=== PATIENT | female | born 1965 | race Caucasian/White ===

== ENCOUNTER → 2016-07-08 | Outpatient (CLI) | payer BC ==
--- NOTE | 2016-07-08 13:19 | MR ---
EXAMINATION TYPE: MR brain wo/w con DATE OF EXAM: 07/08/2016 1:07 PM COMPARISON: Prior MRI brain January 25, 2013. HISTORY: MS with new extremity weakness. TECHNIQUE: Multiplanar, multisequence images of the brain and brainstem is performed without and with IV contras t, utilizing 10 mL intravenous MultiHance gadolinium contrast is administered intravenously. Demyeli nating disease protocol with additional Sagittal Flair sequence performed. FINDINGS: T2 Lesions Present : Yes Approximate Number of Lesions: Approximately 30 Locations Identified : Predominantly periventricular and deep white matter though some subcortical le sions are present. Size of Reference Lesion(s): 1. 0.6 cm x 0.6 cm x 0.6 cm on axial image 21 and sagittal image 13 left posterior frontal centrum s emiovale periventricular small lesion stable. 2 0.5 cm x 0.5 cm x 1.3 cm on axial image 25 and sagittal image 22 right parietal's subcortical les ion stable. Enhancing Lesion(s) Present: No T1 Hypointense Lesion(s) Present: Yes Change from Prior: Stable Diffusion weighted images demonstrate no evidence of a recent infarct or other diffusion abnormality. There is no worrisome extra-axial fluid collection. The ventricular system and cisternal spaces ar e normal in size and appearance. The brain volume is age appropriate. Midline structures demonstrate normal morphology. The craniocervical junction appears within normal limits. Post contrast images demonstrate no abnormal enhancement. The dural venous sinuses appear pa tent. The globes are distorted by artifact. Mild mucosal thickening at level of ethmoid sinuses sana ins present. There is mild mucosal thickening in inferior maxillary sinuses, left greater than right, redemonstrated. IMPRESSION: Moderate white matter changes likely on basis of known multiple sclerosis redemonstrated. Overall stable findings. No new or enhancing lesions are clearly seen. Mild chronic paranasal sinus disease is redemonstrated without significant change from prior study identified.
== END | disposition home or self-care (01) ==
LOC: RADMRIMAIN 12:22
PROVIDERS: ATTEND Psychiatry & Neurology Neurology
DX: R90.82 White matter disease, unspecified (principal); J34.89 Other specified disorders of nose and nasal sinuses
CPT/HCPCS: 70553; A9577

== ENCOUNTER 2016-07-09 20:30 | Emergency (ER) | payer BC ==
[2016-07-09] MEDS ORDERED: MAG HYDROX/AL HYDROX/SIMETH 30 ML, HYOSCYAMINE ELIXIR 10 ML, CIMETIDINE HCL 300 MG, LID... PO STA ×4 (21:10)
[2016-07-09] MEDS ORDERED: SODIUM CHLORIDE 0.9% 1,000 ML IV ONE (21:12)
[2016-07-09] MEDS: ONDANSETRON 4 MG/2 ML VIAL IVP STA (21:29)
[2016-07-09] MEDS ORDERED: KETOROLAC 30 MG/ML 1 ML VIAL IVP STA (21:54)
[2016-07-09 21:58] LABS: ALT 55 U/L (9-52); AST 32 U/L (14-36); Alkaline Phosphatase 127 U/L (38-126); Anion Gap 10 mmol/L; Blood Urea Nitrogen 22 mg/dL (7-17); Calcium 9.6 mg/dL (8.4-10.2); Carbon Dioxide 29 mmol/L (22-30); Chloride 104 mmol/L (98-107); Glucose 94 mg/dL (74-99); Non-African American GFR(MDRD) >60 (>60 ml/min/1.73 sqM); Potassium 3.8 mmol/L (3.5-5.1); Sodium 143 mmol/L (137-145); Total Bilirubin 0.7 mg/dL (0.2-1.3)
[2016-07-09 22:12] LABS: Basophils # (A) 0.1 k/uL (0-0.2); Basophils % (A) 1 %; CH 30.5; CHCM 33.9; Eosinophils # (A) 0.4 k/uL (0-0.7); Eosinophils % (A) 5 %; HCT 40.5 % (34.0-46.0); HDW 2.52; HGB 13.4 gm/dL (11.4-16.0); Luc # (Auto) 0.17; Luc % (Auto) 2; Lymphocytes # (A) 2.1 k/uL (1.0-4.8); Lymphocytes % (A) 31 %; MCH 29.8 pg (25.0-35.0); MCV 90.3 fL (80.0-100.0); Mean Platelet Volume 9.1; Monocytes # (A) 0.6 k/uL (0-1.0); Monocytes % (A) 9 %; Neutrophils # (A) 3.7 k/uL (1.3-7.7); Neutrophils % (A) 53 %; RBC 4.49 m/uL (3.80-5.40); RDW 12.7 % (11.5-15.5); WBC 6.9 k/uL (3.8-10.6); WBC (Perox) 7.04
[2016-07-09] MEDS ORDERED: RX INFO: IV CONTRAST WAS GIVEN 1 EACH MISC MISCELLANE PRN (23:38)
[2016-07-09] MEDS ORDERED: MORPHINE SULFATE 4 MG/ML SYRINGE IVP STA (23:39)
[2016-07-10] MEDS: ONDANSETRON 4 MG/2 ML VIAL IVP STA
--- NOTE | 2016-07-10 02:18 | CT ---
EXAMINATION TYPE: CT abdomen pelvis w con DATE OF EXAM: 07/10/2016 12:43 AM COMPARISON: NONE HISTORY: Epigastric Pain X3 days history of cholecystectomy CT DLP: 347.60 mGycm Automated exposure control for dose reduction was used. TECHNIQUE: Helical acquisition of images was performed from the lung bases through the pelvis. CONTRAST: Performed without Oral Contrast and with IV Contrast, patient injected with 100 mL of Omnipaque 300. FINDINGS: LUNG BASES: Mild atelectasis in both lung bases. LIVER/GB: There is mild fatty infiltration of liver. Cholecystectomy changes are noted. PANCREAS: Pancreas showed mild prominence of pancreatic duct and is probably related to chronic pulido es. No definite acute pancreatitis is noted. No significant fat stranding or pseudocyst formation is noted in the pancreas. SPLEEN: No significant abnormality is seen. ADRENALS: No significant abnormality is seen. KIDNEYS: No significant abnormality is seen. RETROPERITONEAL ADENOPATHY: None visualized REPRODUCTIVE ORGANS: No significant abnormality is seen URINARY BLADDER: No significant abnormality is seen. PELVIC ADENOPATHY: None visualized. OSSEOUS STRUCTURES: No significant abnormality is seen. BOWEL: Stomach is fluid and gas distended moderately. There is evidence of mucosal wall thickening i n the antrum of the stomach extending into the duodenum with suggestion of gastritis and duodenitis a s seen in the axial image 27 and coronal image 20. Small bowel loops showed no significant obstruction. Colonic bowel loops showed mild to moderate diverticulosis. There is possibility of mild colitis or diverticulitis changes without drainable abscess in the axial image 64 with mild fat stranding. Visualized appendix is gas-filled in the axial image 51 and coronal image 36 and appears unremarkable . OTHER: IMPRESSION: 1. SUSPECTED GASTRITIS AND DUODENITIS CHANGES. 2. POSSIBLE MILD DIVERTICULITIS INVOLVING DESCENDING COLON. NO SIGNIFICANT DRAINABLE ABSCESS IS NOTED . 3. APPENDIX APPEARS UNREMARKABLE. 4. MILD FATTY INFILTRATION OF LIVER. 5. POSSIBLE CHRONIC INFLAMMATION OF PANCREAS WITHOUT ACUTE PANCREATITIS. 6. CHOLECYSTECTOMY. A PHONE REPORT IS GIVEN TO DR. APONTE AT THE TIME OF THE DICTATION.
--- NOTE | 2016-07-10 02:31 | ED ---
Abdominal Pain HPI - General Chief Complaint: Abdominal Pain Stated Complaint: Abd Pain Time Seen by Provider: 07/09/16 20:49 Source: patient Mode of arrival: ambulatory Limitations: no limitations - History of Present Illness Initial Comments: 51-year-old female presenting for evaluation of abdominal pain that is progressive since onset last night that is continued to worsen stating that she is unable to find a position of comfort due to this sharp pain that radiates into her back that is worse with food. She states there are no alleviating factors to her pain. She states this pain is similar to a previous injury she had and was diagnosed with a hiatal hernia at that time although there was no surgical repair. - Related Data Home Medications Medication Instructions Recorded Confirmed Cholecalciferol [Vitamin D3] 2,000 unit PO DAILY 07/09/16 07/09/16 Glatiramer Acetate [Copaxone] 20 mg SQ MOWEFR 07/09/16 07/09/16 Modafinil [Provigil] 100 mg PO DAILY 07/09/16 07/09/16 Topiramate [Topamax] 100 mg PO DAILY PRN 07/09/16 07/09/16 Previous Rx's Medication Instructions Recorded Ciprofloxacin HCl [Cipro] 500 mg PO Q12HR #14 tablet 07/10/16 Pantoprazole Sodium [Protonix] 40 mg PO DAILY #30 tablet. 07/10/16 metroNIDAZOLE [Flagyl] 500 mg PO Q8HR #21 tab 07/10/16 Allergies Allergy/AdvReac Type Severity Reaction Status Date / Time No Known Allergies Allergy Verified 07/09/16 20:41 Review of Systems ROS Statement: Those systems with pertinent positive or pertinent negative responses have been documented in the HPI. General: Patient denies fever, chills, positive nausea without vomiting HEENT: No visual changes. No eye pain. No nasal symptoms. No dysphagia.No odynophagia. No ENT pain. Cardiac: No chest pain. No palpitations. Pulmonary; No dyspnea. No cough. GI: Positive epigastric abdominal pain. No diarrhea. No constipation. No bowel habit changes. No melena. No hematochezia. : No dysuria.No hematuria. No hesitancy. No urgency. No renal lithiasis history. Musculoskeletal: No musculoskeletal pain. Orthopedic: Denies fracture history. Integumentary: Denies rash. Denies pruritis. Neurologic: Denies any lateralizing weakness. Denies numbness. Denies tingling. No seizure activity. Denies TIA or CVA. Heme/Onc: Denies anemia. Denies cancer. Denies adenopathy. ROS Other: All systems not noted in ROS Statement are negative. Past Medical History Past Medical History: Neurologic Disorder Additional Past Medical History / Comment(s): Multiple sclerosis; Migraines History of Any Multi-Drug Resistant Organisms: None Reported Past Surgical History: Cholecystectomy, Orthopedic Surgery, Uterine Ablation Additional Past Surgical History / Comment(s): Neck surgery Past Psychological History: No Psychological Hx Reported Smoking Status: Current every day smoker Past Alcohol Use History: None Reported Past Drug Use History: Marijuana General Exam - General Exam Comments Initial Comments: General: The patient is awake and alert, in mild distress, and does not appear acutely ill. Eye: Pupils are equal, round and reactive to light, extra-ocular movements are intact; there is normal conjunctiva bilaterally. No signs of icterus. Ears, nose, mouth and throat: There are moist mucous membranes and no oral lesions. Neck: The neck is supple, there is no tenderness or JVD. Cardiovascular: There is a regular rate and rhythm. No murmur, rub or gallop is appreciated. Respiratory: Lungs are clear to auscultation, respirations are non-labored, breath sounds are equal. No wheezes, stridor, rales, or rhonchi. Gastrointestinal: Soft, non-distended, moderate epigastric abdominal tenderness without masses or organomegaly noted. There is no rebound or guarding present. No CVA tenderness. Bowel sounds are unremarkable. Back: There is no tenderness to palpation in the midline. There is no obvious deformity. No rashes noted. Musculoskeletal: Normal ROM, no tenderness, There is no pedal edema. There is no calf tenderness or swelling. Sensation intact. Pulses equal bilaterally 2+. Neurological: CN II-XII intact, There are no obvious motor or sensory deficits. Coordination appears grossly intact. Speech is normal. Skin: Skin is warm and dry and no rashes or lesions are noted. Psychiatric: Cooperative, appropriate mood & affect, normal judgment. Limitations: no limitations Course Vital Signs 07/09/16 07/09/16 07/10/16 20:39 21:44 00:04 Temperature 97.1 F L 98.0 F 97.6 F Pulse Rate 68 96 71 Respiratory 18 18 18 Rate Blood Pressure 156/69 156/96 115/53 O2 Sat by Pulse 99 98 98 Oximetry 07/10/16 01:22 Temperature 97.5 F L Pulse Rate 63 Respiratory 18 Rate Blood Pressure 124/84 O2 Sat by Pulse 98 Oximetry Medical Decision Making - Medical Decision Making 51-year-old female presenting for evaluation of epigastric abdominal tenderness that started last night and progressively worsened. She states the pain is similar to when she had epigastric trauma some years ago resulting in a hiatal hernia. The pain is epigastric with radiation into her back but she denies any history of alcohol consumption and is a 32 had a cholecystectomy. There is no history of significant NSAID use either. Physical examination reveals a mildly distressed patient holding her epigastric region. Epigastric abdominal tenderness to palpation but no guarding or rigidity and there are no peritoneal signs. We'll obtain labs and provide pain control. Labs revealed no acute significant abnormalities. Patient reevaluated and continued to have abdominal pain despite GI cocktail and Toradol. Through shared decision making it was decided that she would obtain a CT abdomen for further evaluation of intra-abdominal structures. CT abdomen and pelvis with IV contrast: Suspected gastritis and duodenitis, possible mild diverticulitis involving descending colon without significant drainable abscess, appendix appears unremarkable, mild fatty infiltration of liver, possible chronic inflammation of the pancreas without acute pancreatitis, cholecystectomy. The patient was informed of these findings and that she would be discharged with antibiotics and Protonix. She is further advised to follow-up with her primary care physician as well as her GI specialist. The patient was given instructions to return to this facility if her symptoms should worsen or persist including but not limited to: Intractable abdominal pain, intractable nausea vomiting, fevers and chills, chest pain, shortness of breath. The patient acknowledged an understanding of this information and agreed with this plan of care. - Lab Data Result diagrams: 07/09/16 22:00 07/09/16 21:45 Lab Results 07/09/16 07/09/16 07/09/16 Range/Units 21:45 21:45 22:00 WBC 6.9 (3.8-10.6) k/uL RBC 4.49 (3.80-5.40) m/uL Hgb 13.4 (11.4-16.0) gm/dL Hct 40.5 (34.0-46.0) % MCV 90.3 (80.0-100.0) fL MCH 29.8 (25.0-35.0) pg MCHC 33.0 (31.0-37.0) g/dL RDW 12.7 (11.5-15.5) % Plt Count 122 L (150-450) k/uL Neutrophils % 53 % Lymphocytes % 31 % Monocytes % 9 % Eosinophils % 5 % Basophils % 1 % Neutrophils # 3.7 (1.3-7.7) k/uL Lymphocytes # 2.1 (1.0-4.8) k/uL Monocytes # 0.6 (0-1.0) k/uL Eosinophils # 0.4 (0-0.7) k/uL Basophils # 0.1 (0-0.2) k/uL Sodium 143 (137-145) mmol/L Potassium 3.8 (3.5-5.1) mmol/L Chloride 104 (98-107) mmol/L Carbon Dioxide 29 (22-30) mmol/L Anion Gap 10 mmol/L BUN 22 H (7-17) mg/dL Creatinine 0.81 (0.52-1.04) mg/dL Est GFR (MDRD) Af Amer >60 (>60 ml/min/1.73 sqM) Est GFR (MDRD) Non-Af >60 (>60 ml/min/1.73 sqM) Glucose 94 (74-99) mg/dL Calcium 9.6 (8.4-10.2) mg/dL Total Bilirubin 0.7 (0.2-1.3) mg/dL AST 32 (14-36) U/L ALT 55 H (9-52) U/L Alkaline Phosphatase 127 H (38-126) U/L Troponin I <0.012 (0.000-0.034) ng/mL Total Protein 7.0 (6.3-8.2) g/dL Albumin 4.2 (3.5-5.0) g/dL Lipase 151 (23-300) U/L 07/10/16 02:40 EKG shows normal sinus rhythm without any significant abnormalities. Disposition Clinical Impression: Gastritis and duodenitis, Diverticulitis Disposition: HOME SELF-CARE Condition: Stable Instructions: Gastritis (ED), Duodenitis (ED) Additional Instructions: Please use medication as discussed. Please follow up with family doctor if symptoms have not improved over the next two days. Please return to the emergency room if your symptoms increase or worsen or for any other concerns. Prescriptions: Ciprofloxacin HCl [Cipro] 500 mg PO Q12HR #14 tablet Pantoprazole Sodium [Protonix] 40 mg PO DAILY #30 tablet. metroNIDAZOLE [Flagyl] 500 mg PO Q8HR #21 tab Referrals: Monroe Cordoba MD [Primary Care Provider] - 1-2 days Time of Disposition: 02:31
[2016-07-10 02:47] VITALS: BP 122/72; PULSE 72; RESP 20; TEMP 97.6
== END 2016-07-10 02:45 | disposition home or self-care (01) ==
LOC: EC 20:30
DX: K29.70 Gastritis, unspecified, without bleeding (principal); K29.80 Duodenitis without bleeding; K57.92 Diverticulitis of intestine, part unspecified, without perforation or abscess without bleeding; K44.9 Diaphragmatic hernia without obstruction or gangrene; Z79.899 Other long term (current) drug therapy; G35 Multiple sclerosis; G43.909 Migraine, unspecified, not intractable, without status migrainosus; F17.200 Nicotine dependence, unspecified, uncomplicated
CPT/HCPCS: 36415; 93005; 80053; 83690; 84484; 85025; 74177; 96374; 96375; 96361; 99284; J2270; J2405 ×2; J1885; Q9967

== ENCOUNTER → 2016-07-21 | Outpatient (CLI) | payer BC ==
[2016-07-21 11:44] LABS: ALT 39 U/L (9-52); AST 29 U/L (14-36); Alkaline Phosphatase 80 U/L (38-126); Bilirubin, Delta 0.2 mg/dL (0.0-0.2); Total Bilirubin 0.9 mg/dL (0.2-1.3); Total Protein 6.9 g/dL (6.3-8.2)
[2016-07-21 11:59] LABS: Basophils # (A) 0.1 k/uL (0-0.2); Basophils % (A) 1 %; CH 29.9; CHCM 32.5; Eosinophils # (A) 0.3 k/uL (0-0.7); Eosinophils % (A) 4 %; HDW 2.41; HGB 14.4 gm/dL (11.4-16.0); Luc # (Auto) 0.18; Luc % (Auto) 3; Lymphocytes # (A) 2.8 k/uL (1.0-4.8); Lymphocytes % (A) 43 %; MCHC 31.4 g/dL (31.0-37.0); MCV 92.6 fL (80.0-100.0); Mean Platelet Volume 8.6; Monocytes # (A) 0.4 k/uL (0-1.0); Monocytes % (A) 7 %; Neutrophils # (A) 2.8 k/uL (1.3-7.7); Neutrophils % (A) 43 %; RBC 4.97 m/uL (3.80-5.40); RDW 12.5 % (11.5-15.5); WBC 6.5 k/uL (3.8-10.6); WBC (Perox) 6.33
[2016-07-21 12:20] LABS: Hepatitis B Core IgM Index 0.17
[2016-07-21 12:32] LABS: Hepatitis C Virus IgG Index 0.11
[2016-07-21 12:35] LABS: Hepatitis C Virus IgG Ab Negative (Negative)
[2016-07-21 14:28] LABS: Iron 145 ug/dL (37-170)
[2016-07-21 14:38] LABS: % Iron Saturation 53.9 % (20-50); Total Iron Binding Capacity 269 ug/dL (265-497)
[2016-07-21 20:25] LABS: ANA w/Reflex to Titer NEGATIVE (NEGATIVE)
== END | disposition home or self-care (01) ==
LOC: LABWHC1 11:03
PROVIDERS: ATTEND Physician Assistant
DX: R94.5 Abnormal results of liver function studies (principal)
CPT/HCPCS: 36415; 80074; 80076; 82103; 82390; 82728; 83516; 83540; 83550; 84165; 85025; 86038

== ENCOUNTER → 2016-07-28 | Outpatient (CLI) | payer BC ==
--- NOTE | 2016-07-29 11:03 | MR ---
MRCP HISTORY: Abnormal CAT scan Correlation to CT scan abdomen pelvis 10 July 2016 Multiplanar multisequence imaging through the biliary system, three-dimensional postprocessing was pe rformed. Patient is post cholecystectomy. Loss of signal within the liver on out of phase imaging is suggestiv e of fatty infiltration of the liver. Pancreas shows an unremarkable appearance. Stomach shows appare nt improvement in wall thickening. Pancreatic duct is mildly prominent. No evident adenopathy. There is no luminal filling defect within the biliary system to suggest obstruction. Mild prominence of the central biliary system may be due to postcholecystectomy change. Apparent long cystic duct rem nant is noted. IMPRESSION: Post cholecystectomy. No luminal abnormality evident within the biliary system. Additiona l findings above.
== END | disposition home or self-care (01) ==
LOC: RADMRIMAIN 20:48
PROVIDERS: ATTEND Physician Assistant
DX: R93.8 Abnormal findings on diagnostic imaging of other specified body structures (principal); Z90.49 Acquired absence of other specified parts of digestive tract
CPT/HCPCS: 74181

== ENCOUNTER 2016-08-03 09:43 | Day surgery (SDC) | payer BC ==
[2016-08-01 11:36] VITALS: BMI 22.4
[~2016-08-03 09:43] MED LIST: LACTATED RINGERS 1,000 ML IV SCH
[2016-08-03 10:28] VITALS: RESP 16; TEMP 97.4
[2016-08-03] MEDS ORDERED: LIDOCAINE 1% 20 ML VIAL (10MG/ML) FOR IV START INTRADERMA ONE (10:35)
[2016-08-03] MEDS ORDERED: PROPOFOL 10 MG/ML 20 ML VIAL IV ONE (10:51)
[2016-08-03] MEDS ORDERED: LIDOCAINE 1% INJ 10MG/ML (20 ML MDV) ONE (10:51)
--- NOTE | 2016-08-03 11:06 | P.PCN ---
Date of Procedure: 08/03/16 Procedure(s) Performed: BRIEF HISTORY: Patient is a 51-year-old, pleasant, female, scheduled for an upper endoscopy as a part of evaluation of severe epigastric pain for the last 2 weeks' duration. She went to the ER and had CT of the abdomen done that showed some prominence of the pancreatic duct and hence she had an MRCP done which was normal. The persistent epigastric pain she is scheduled for an upper endoscopy to evaluate further PROCEDURE PERFORMED: Esophagogastroduodenoscopy with biopsy. PREOPERATIVE DIAGNOSIS: Epigastric pain of 2 weeks duration. IV sedation per anesthesia. PROCEDURE: After informed consent was obtained, the patient was brought into the endoscopy unit. IV conscious sedation was administered by Anesthesia under continuous monitoring. Initially the Olympus GIF-140 video endoscope was inserted into the mouth. Esophagus intubated without any difficulty. It was gradually advanced into the stomach and duodenum and carefully examined. The bulb and the second part of the duodenum appeared normal. Biopsies were done from the duodenum to rule out celiac disease. The scope at this time was withdrawn to the stomach, adequately insufflated with air, and upon careful examination, mucosa of the antrum, had mild gastritis and scattered erosions and biopsies were done from this area. The body, cardia and the fundus appeared normal. The scope was then withdrawn into the esophagus. The GE junction was located at 39 cm from the incisors.There were no erosions or ulcerations seen, rest of the esophagus appeared normal and the patient tolerated the procedure well. IMPRESSION: 1. Mild antral erosive gastritis. 2. No evidence of esophagitis or peptic ulcer disease. RECOMMENDATIONS: The findings of this examination were discussed with the patient as well as her family. She was advised to follow with the biopsy results. In the meantime she will continue with Prilosec 20 mg daily and follow antireflux measures..
--- NOTE | 2016-08-03 11:22 | P.PCN ---
Date of Procedure: 08/03/16 Procedure(s) Performed: BRIEF HISTORY: Patient is a 51-year-old pleasant white female, scheduled for an elective colonoscopy as a part of evaluation of abdominal pain for which she went to the emergency room 2 weeks ago. He is mostly in the epigastric area as well as left lower quadrant area. PROCEDURE PERFORMED: Colonoscopy with snare polypectomy PREOPERATIVE DIAGNOSIS: Abdominal pain. IV sedation per Anesthesia. PROCEDURE: After informed consent was obtained, the patient, was brought into the endoscopy unit. IV conscious sedation was administered by Anesthesia under continuous monitoring. Initially the Olympus CF-160 flexible video colonoscope was then inserted in the rectum, gradually advanced into the cecum without any difficulty. Careful examination was performed as the scope was gradually being withdrawn. Ileocecal valve and the appendiceal orifice were visualized and appeared normal. Prep was excellent. Mucosa of the cecum, ascending colon, appeared normal. In the transverse colon there was a 1 cm flat polyp removed by snare polypectomy. The rest of the transverse colon, descending colon, sigmoid colon, and rectum appeared normal. Scattered sigmoid diverticulosis seen. Retroflexion was performed in the rectum and no lesions were seen. The patient tolerated the procedure well. IMPRESSION: 1 cm flat transverse colon polyps status post polypectomy. Scattered sigmoid diverticulosis. RECOMMENDATIONS: Findings of this examination were discussed with the patient as well as a family. She was advised to follow with the biopsy results. If the biopsy of the colon polyp shows a tubular adenoma she can have a repeat colonoscopy in 5 years.
[2016-08-03 11:45] VITALS: BP 123/71; PULSE 60
== END 2016-08-03 12:07 | disposition home or self-care (01) ==
LOC: ORWHC2ENDO 09:43
PROVIDERS: ATTEND Internal Medicine Gastroenterology
DX: K29.60 Other gastritis without bleeding (principal); K29.50 Unspecified chronic gastritis without bleeding; K57.30 Diverticulosis of large intestine without perforation or abscess without bleeding; D12.3 Benign neoplasm of transverse colon; F17.200 Nicotine dependence, unspecified, uncomplicated; G35 Multiple sclerosis; K21.0 Gastro-esophageal reflux disease with esophagitis; Z79.899 Other long term (current) drug therapy
CPT/HCPCS: 81025; 88305; 88342; 45385; 43239; J2001; J2704

== ENCOUNTER → 2016-12-07 | Outpatient (CLI) | payer BC | END | disposition home or self-care (01) | LOC: LABWHC1 13:47 | PROVIDERS: ATTEND Psychiatry & Neurology Neurology | DX: G35 Multiple sclerosis (principal) | CPT/HCPCS: 36415; 82306 ==

== ENCOUNTER → 2017-09-14 | Outpatient (CLI) | payer BC ==
[2017-09-14 12:21] LABS: Basophils # (A) 0.1 k/uL (0-0.2); Basophils % (A) 1 %; Eosinophils # (A) 0.2 k/uL (0-0.7); Eosinophils % (A) 3 %; HCT 43.5 % (34.0-46.0); HGB 14.2 gm/dL (11.4-16.0); Lymphocytes # (A) 2.9 k/uL (1.0-4.8); Lymphocytes % (A) 38 %; MCH 29.7 pg (25.0-35.0); MCHC 32.6 g/dL (31.0-37.0); MCV 90.9 fL (80.0-100.0); Mean Platelet Volume 9.9; Monocytes # (A) 0.4 k/uL (0-1.0); Monocytes % (A) 5 %; Neutrophils % (A) 52 %; Platelet Count 157 k/uL (150-450); RBC 4.79 m/uL (3.80-5.40); RDW 12.9 % (11.5-15.5); WBC 7.7 k/uL (3.8-10.6)
[2017-09-14 12:38] LABS: ALT 27 U/L (9-52); AST 21 U/L (14-36)
== END | disposition home or self-care (01) ==
LOC: LABWHC1 11:50
PROVIDERS: ATTEND Psychiatry & Neurology Neurology
DX: G35 Multiple sclerosis (principal)
CPT/HCPCS: 36415; 84450; 84460; 85025; 86480

== ENCOUNTER → 2017-10-17 | Outpatient (CLI) | payer BC ==
--- NOTE | 2017-10-19 11:15 | MM ---
Reason for exam: screening (asymptomatic). Last mammogram was performed 7 years and 7 months ago. History: Family history of breast cancer in 2 maternal cousins. Took hormonal contraceptives for 3 months. Physical Findings: A clinical breast exam by your physician is recommended on an annual basis and results should be correlated with mammographic findings. MG Screening Mammo w CAD Bilateral CC and MLO view(s) were taken. Prior study comparison: March 22, 2010, bilateral digital screening mammogram. The breast tissue is heterogeneously dense. This may lower the sensitivity of mammography. No significant changes when compared with prior studies. ASSESSMENT: Negative, BI-RAD 1 RECOMMENDATION: Routine screening mammogram of both breasts in 1 year.
== END | disposition home or self-care (01) ==
LOC: RADMAMWWP 12:09
PROVIDERS: ATTEND Family Medicine
DX: Z12.31 Encounter for screening mammogram for malignant neoplasm of breast (principal)
CPT/HCPCS: 77067

== ENCOUNTER → 2017-11-03 | Outpatient (CLI) | payer BC ==
[~2017-11-03] MED LIST changes: -LACTATED RINGERS 1,000 ML IV SCH; +REGADENOSON 0.4 MG/5 ML SYRINGE IV ONE
--- NOTE | 2017-11-03 10:25 | P.STRESS ---
- Stress Test Note Stress Test Results/Findings: Exam Performed: NM stress lexiscan cardiolite Exam Date: 11/03/17 Reason for Exam: Chest Pain Height: 5 ft 2 in Weight: 52.617 kg Protocol: Raya Scan Stage: na Duration of Exercise: na Resting Heart Rate: 58 Resting Blood Pressure: 144/80 Maximum Achieved Heart Rate: 84 Maximum Achieved Blood Pressure: 153/80 85% PMHR: na 100% PMHR: na METS: na Technologist Comment: Stress Test Results/Findings: Baseline heart rate 58 beats a minute, Baseline blood pressure 144/80 mmHg Baseline ECG shows early repolarization abnormality inferolaterally During Lexiscan infusion no ECG changes noted heart rate and blood pressure remained stable Nuclear portion report separate
--- NOTE | 2017-11-03 11:47 | NM ---
EXAMINATION TYPE: NM stress lexiscan cardiolite DATE OF EXAM: 11/03/2017 COMPARISON: NONE HISTORY: History of tobacco use and palpitations presents with chest pain. TECHNIQUE: After the intravenous administration of 10.12 mCi Tc 99m Sestamibi - Cardiolite resting S PECT images acquired 45 minutes post injection. The patient received 0.4mg Lexiscan, 26.4 mCi Tc 99m Sestamibi - Stress images obtained [address] injection FINDINGS: Review of stress and rest SPECT images demonstrates no distinct perfusion abnormality. Gated analysi s shows normal wall motion with an estimated left ventricular ejection fraction of 73 %. IMPRESSION: No scintigraphic evidence for reversible ischemia.
== END ==
LOC: RADNMMAIN 08:15
PROVIDERS: ATTEND Family Medicine
DX: R07.89 Other chest pain (principal)
CPT/HCPCS: 93017; 78452; A9500; J2785

== ENCOUNTER → 2018-06-02 | Outpatient (CLI) | payer BC ==
--- NOTE | 2018-06-02 20:57 | MR ---
EXAMINATION TYPE: MR lumbar spine wo con DATE OF EXAM: 06/02/2018 COMPARISON: None HISTORY: Intervertebral disc disorders CONTRAST: 0 mL intravenous Gadavist. TECHNIQUE: Multiplanar, multisequence images of the lumbar spine were acquired. FINDINGS: L5-S1: No significant disc bulge or disc herniation. No spinal canal stenosis. No foraminal stenosi s. . L4-L5: No significant disc bulge or disc herniation. No spinal canal stenosis. No foraminal stenosi s. . L3-L4: There is right lateral disc bulging. This is posteriorly displacing the nerve roots as it ente rs the foramen. Moderate foraminal narrowing is present. Some nerve root contact in the right foramen is evident. No spinal canal stenosis. Some far right lateral disc bulging may be present as well a t this level. 2 lesser degree left far lateral disc bulge may be present. Series 401, images 9-10. L2-L3: No significant disc bulge or disc herniation. No spinal canal stenosis. No foraminal stenosi s. Neural foramen are patent.. L1-L2: No significant disc bulge or disc herniation. No spinal canal stenosis. No foraminal stenosi s. Neural foramen are patent.. T12-L1: No significant disc bulge or disc herniation. No spinal canal stenosis. No foraminal stenos is. Neural foramen are patent.. IMPRESSION: 1. Disc bulging into the lateral right far lateral direction at the L3-4 level. This is displacing th e nerve roots within the thecal sac away from the neural foramen. Correlate with right L3 radicular s ymptoms. 2. Subligamentous disc extension may be present in the right L3-4 foramen with nerve root contact in the foramen.
== END | disposition home or self-care (01) ==
LOC: RADMRIMAIN 09:54
PROVIDERS: ATTEND Family Medicine
DX: M51.16 Intervertebral disc disorders with radiculopathy, lumbar region (principal)
CPT/HCPCS: 72148

== ENCOUNTER → 2018-07-26 | Outpatient (CLI) | payer BC ==
[2018-07-25 12:19] VITALS: BMI 21.9
[2018-07-26 10:20] VITALS: BP 127/78; PULSE 59; RESP 16
--- NOTE | 2018-07-26 11:29 | P.PAINCN ---
History of Present Illness - Reason for Consult Consult date: 07/26/18 - Chief Complaint Back pain - History of Present Illness Amie is a 53-year-old female who presents today as a new patient consult. She has a history of low back pain which been going on since about April. She has a history of multiple sclerosis which was diagnosed in 1999. She has been on treatment for her MS and has had some symptoms secondary to her MS which include bilateral lower extremity weakness as well as pain in her lower extremities. She also has problems related to the treatment which included soft tissue changes where she was taking her injections. As for her pain she has low back pain going across both sides which she feels goes into her buttocks on both sides. She feels that the pain is worse since standing for long periods or walking for longer periods. She feels a dull aching pain into both sides of her buttocks. She denies any radicular symptoms going down her legs. She has not had any type of injections done for her back pain. She does have an MRI. She has been in physical therapy and continues to do daily activities related to her physical therapy. Past Medical History Past Medical History: GERD/Reflux Additional Past Medical History / Comment(s): Multiple sclerosis; "bad headaches ", bulging disk in lower back, History of Any Multi-Drug Resistant Organisms: None Reported Past Surgical History: Section, Cholecystectomy, Orthopedic Surgery, Uterine Ablation Additional Past Surgical History / Comment(s): cervical fusion, Past Anesthesia/Blood Transfusion Reactions: Previous Problems w/ Anesthesia Additional Past Anesthesia/Blood Transfusion Reaction / Comm: "I get real shaky after anesthesia" Past Psychological History: No Psychological Hx Reported Smoking Status: Current every day smoker Past Alcohol Use History: Rare Additional Past Alcohol Use History / Comment(s): smoking < 1/2 PPD, has smoked since age 20 Past Drug Use History: None Reported - Past Family History Father Family Medical History: Cancer Sister(s) Additional Family Medical History / Comment(s): "blood clot in her chest" Medications and Allergies Home Medications Medication Instructions Recorded Confirmed Type Cholecalciferol [Vitamin D3] 10,000 unit PO BID 07/09/16 07/26/18 History Topiramate [Topamax] 100 mg PO HS PRN 07/09/16 07/26/18 History Propranolol [Inderal] 20 mg PO QAM 08/01/16 07/26/18 History Ibuprofen 400 mg PO DIRECTED PRN 07/25/18 07/26/18 History Pantoprazole Sodium 40 mg PO DAILY 07/25/18 07/26/18 History Teriflunomide [Aubagio] 7 mg PO DAILY 07/25/18 07/26/18 History Allergies Allergy/AdvReac Type Severity Reaction Status Date / Time No Known Allergies Allergy Verified 07/26/18 10:04 Physical Exam Vitals: Vital Signs Pulse Resp BP 07/26/18 10:08 59 L 16 127/78 General: Awake and alert oriented 3 no distress Respiratory exam: No audible wheezing no accessory muscle usage Cardiovascular exam: regular rate, palpable bilateral pulses, no lower extremity edema Abdominal exam: No distention nontender to palpation Cervical spine: Normal alignment, Spurling's negative, facet loading negative Lumbar spine: Loss of lumbar lordosis, normal alignment, tender to palpation over bilateral paraspinal muscles, facet loading is positive bilaterally. Straight leg raise is negative. 4-5 strength in bilateral lower extremities. Hamstring 4 out of 5. Quadriceps 4-5. Anterior tibialis is 4-5. Sacroiliac joints: Nontender to palpation, MONROE is negative, Gaenselon negative Neuro exam: Decreased sensation in the lower extremities. Normal sensation in upper extremities., deep tendon reflexes are 2+ bilateral upper extremities. Deep tendon reflexes are brisk in lower extremities. 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 I believe that most of her pain may be coming from her facet joints. She does have a large disc bulge but given the lack of radicular symptoms I'm inclined to believe that most of her pain is coming from the facet joints. I discussed with the patient trialing medial branch blocks before moving onto treating any other symptoms or if she has no improvement from the medial branch blocks her pain may be coming from her severe disc changes at L3 4 level. PQRS Measure Charge Sheet PQRS Narrative: Smoking Status Current every day smoker Do You Want the Pneumonia No Vaccine AT THIS TIME? Blood Pressure 127/78 Pain Intensity [Bilateral 8 Lower Back] Scale Used Numeric (1 - 10) Hx Alcohol Use (MH) Yes: social Home Medications: Ambulatory Orders Cholecalciferol [Vitamin D3] 10,000 unit PO BID 07/09/16 Topiramate [Topamax] 100 mg PO HS PRN 07/09/16 Propranolol [Inderal] 20 mg PO QAM 08/01/16 Ibuprofen 400 mg PO DIRECTED PRN 07/25/18 Pantoprazole Sodium 40 mg PO DAILY 07/25/18 Teriflunomide [Aubagio] 7 mg PO DAILY 07/25/18
== END | disposition home or self-care (01) ==
LOC: PNWHC3 09:54
PROVIDERS: ATTEND Hospitalist
DX: M47.816 Spondylosis without myelopathy or radiculopathy, lumbar region (principal); G35 Multiple sclerosis; G62.9 Polyneuropathy, unspecified; F17.200 Nicotine dependence, unspecified, uncomplicated; K21.9 Gastro-esophageal reflux disease without esophagitis; Z90.49 Acquired absence of other specified parts of digestive tract; Z98.1 Arthrodesis status; Z79.899 Other long term (current) drug therapy; Z98.890 Other specified postprocedural states
CPT/HCPCS: 99211

== ENCOUNTER 2018-08-01 09:23 | Day surgery (SDC) | payer BC ==
[2018-07-31 10:02] VITALS: BMI 22.4
[~2018-08-01 09:23] MED LIST changes: -REGADENOSON 0.4 MG/5 ML SYRINGE IV ONE; +SODIUM CHLORIDE 0.9% 500 ML 500 ML IV SCH
[2018-08-01 10:19] VITALS: RESP 18; TEMP 98.2
--- NOTE | 2018-08-01 11:31 | P.PCN ---
Date of Procedure: 08/01/18 Procedure(s) Performed: PREOPERATIVE DIAGNOSIS : 1- Lumbar spondylosis with Facet Arthropathy without myelopathy . 2- Lumber degenerative disc disease POSTOPERATIVE DIAGNOSIS: 1- Lumbar spondylosis with Facet Arthropathy without myelopathy . 2- Lumber degenerative disc disease PROCEDURE: Diagnostic bilateral L3 -4 , L4 -5 , and L5-S1 medial branch block under fluoroscopy ANESTHESIA: moderate sedation with intravenous Versed 2 mg and Fentanyl 100 mcg. EBL: Minimal COMPLICATION: None. IV FLUIDS: 100 mL of normal saline. PROCEDURE INDICATION: Chronic low back pain secondary to Facet arthropathy unresponsive to conservative treatment. PROCEDURE DESCRIPTION: the patient was seen and identified in the preop holding area , risks and benefits and possible complications of the procedure and alternative were discussed with the patient, and the patient agreed to proceed with the procedure and signed the consent IV was started and vital signs monitored during the procedure and fluoroscopy was used to maximize the benefit and accuracy of the needle placement, and sedation was given to decrease patient anxiety, patient was taken to the procedure room and placed in prone position vital signs monitored in the back prepped with chlorhexidine X3 then under strict sterile technique using a right oblique fluoroscopy ,the junction of the transverse process and the superior articulating process of the right L3- 4 , L4- 5, and L5-S1 vertebra which corresponding to the fluoroscopy image of the eye of the Fito dog on the block side for the medial branches and subsequently , after local infiltration of skin and subcu tissuies with Ropivacaine 0.5 % , one mL at each level , then 25-gauge Quincke-type needles , 3 needle was used , each one of them placed at the junction of the base of the transverse process and the superior articular process at the appropriate level, and the needle was advanced until the periosteum contacted, needle placement confirmed with AP oblique and lateral view and after appropriate needle placement confirmed, and after negative aspiration for heme and CSF and there was no paresthesia 1-1/2 mL of Ropivacaine 0.5% mixed with 20 mg Depo-Medrol , then half mL injected at each level after negative aspiration the needle subsequently removed and the same procedure repeated for the left side at left side at L3-4, L4- 5 and L5-S1 levels. At the end of the procedure and the needles removed and a bandage applied after the skin was cleaned the cleaning solution patient taken to recovery room in stable condition and monitors in the recovery room for 20-30 minutes and discharged home in stable condition after discharge criteria met and patient will follow up with the pain clinic in 2-4 weeks
[2018-08-01] MEDS ORDERED: LACTATED RINGERS 1,000 ML IV ONE (11:32)
[2018-08-01] MEDS ORDERED: IV FLUID CONTINUATION 1,000 ML IV ONE (11:34)
--- NOTE | 2018-08-01 11:43 | FL ---
EXAMINATION TYPE: FL guided pain mgmt statistic DATE OF EXAM: 08/01/2018 HISTORY: Flouroscopy time 12 seconds of fluoroscopy provided. IMPRESSION: 1. Fluoroscopy time.
[2018-08-01 11:53] VITALS: BP 113/56; PULSE 50
== END 2018-08-01 12:30 | disposition home or self-care (01) ==
LOC: ORPAIN 09:23
PROVIDERS: ATTEND Specialist
DX: M47.816 Spondylosis without myelopathy or radiculopathy, lumbar region (principal); M51.36 Other intervertebral disc degeneration, lumbar region; G89.29 Other chronic pain
CPT/HCPCS: 81025; 64493; 64494; 64495; J2250; J1030; J3010; 99152

== ENCOUNTER → 2018-09-19 | Outpatient (CLI) | payer BC ==
[2018-09-19 13:42] VITALS: BP 157/77; PULSE 75; RESP 16
--- NOTE | 2018-09-19 14:16 | P.PN ---
Subjective Progress Note Date: 09/19/18 Amie is a very pleasant 53-year-old female presents today as a follow-up. She was seen as a new patient couple months ago for back pain. She has a long history of multiple sclerosis diagnosed in 2016. We'll set her up to have medial branch blocks done. The first injection offered her significant amount of pain. She was very excited. The second injection she reports did not help very much and she is very confused about what she should do. She reports that her back pain causes her significant pain is a 7 out of 10 on today's visit. The pain is not changing continues to be across her low back without much radiation into the lower extremities. She reports that she would like to move forward and try to figure out what else we can do to try to improve her back pain. She's not really using any pain medications for this. Objective - Vital Signs Vital signs: Vital Signs Temp Pulse 75 09/19/18 13:36 Resp 16 09/19/18 13:36 BP 157/77 09/19/18 13:36 Pulse Ox Intake & Output 09/18/18 09/19/18 09/19/18 18:59 06:59 18:59 Weight 51.256 kg - Exam General: Awake and alert oriented 3 no distress Respiratory exam: No audible wheezing no accessory muscle usage Cardiovascular exam: regular rate, palpable bilateral pulses, no lower extremity edema Abdominal exam: No distention nontender to palpation Cervical spine: Normal alignment, Spurling's negative, facet loading negative Lumbar spine: Loss of lumbar lordosis, normal alignment, tender to palpation over bilateral paraspinal muscles, facet loading is positive bilaterally. Strai ght leg raise is negative. Sacroiliac joints: Nontender to palpation, MONROE is negative, Gaenselon negative Neuro exam: Normal sensation in bilateral upper extremities, deep tendon reflexes are 2+ bilateral upper extremities. Normal sensation in bilateral lower extremities. Deep tendon reflexes are brisk Psych exam: Cooperative, appropriate mood Assessment and Plan Assessment: #1 lumbar spondylosis without myelopathy #2 degenerative disc disease #3 multiple sclerosis Plan: After discussion with the patient and review of the injection records. We'll discuss potentially trying a third medial branch block to try get a clear picture of what is causing her pain. We will attempt to do the medial branch block with local only and no steroids. We will give the patient a pain diary to evaluate how she feels immediately after the procedure. If she does have good relief we'll move forward with the ablation. She does not have good relief we will discuss potentially trying epidural steroid injections.
== END | disposition home or self-care (01) ==
LOC: PNWHC3 13:15
PROVIDERS: ATTEND Hospitalist
DX: M51.36 Other intervertebral disc degeneration, lumbar region (principal); M47.816 Spondylosis without myelopathy or radiculopathy, lumbar region; G35 Multiple sclerosis
CPT/HCPCS: 99211

== ENCOUNTER 2018-10-02 07:01 | Day surgery (SDC) | payer BC ==
[2018-09-28 11:40] VITALS: BMI 20.6
[~2018-10-02 07:01] MED LIST changes: +LACTATED RINGERS 1,000 ML IV SCH; -SODIUM CHLORIDE 0.9% 500 ML 500 ML IV SCH
[2018-10-02 07:14] VITALS: RESP 16; TEMP 97.5
[2018-10-02] MEDS ORDERED: LIDOCAINE 1% 20 ML VIAL (10MG/ML) FOR IV START INTRADERMA ONE (07:26)
--- NOTE | 2018-10-02 08:15 | P.PCN ---
Date of Procedure: 10/02/18 Procedure(s) Performed: PREOPERATIVE DIAGNOSIS : 1- Lumbar spondylosis with Facet Arthropathy without myelopathy . 2- Lumber degenerative disc disease POSTOPERATIVE DIAGNOSIS: 1- Lumbar spondylosis with Facet Arthropathy without myelopathy . 2- Lumber degenerative disc disease PROCEDURE: Diagnostic bilateral L3 -4 , L4 -5 , and L5-S1 medial branch block under fluoroscopy ANESTHESIA: moderate sedation with intravenous Versed 2 mg and Fentanyl 100 mcg. EBL: Minimal COMPLICATION: None. IV FLUIDS: 100 mL of normal saline. PROCEDURE INDICATION: Chronic low back pain secondary to Facet arthropathy unresponsive to conservative treatment. PROCEDURE DESCRIPTION: the patient was seen and identified in the preop holding area , risks and benefits and possible complications of the procedure and alternative were discussed with the patient, and the patient agreed to proceed with the procedure and signed the consent IV was started and vital signs monitored during the procedure and fluoroscopy was used to maximize the benefit and accuracy of the needle placement, and sedation was given to decrease patient anxiety, patient was taken to the procedure room and placed in prone position vital signs monitored in the back prepped with chlorhexidine X3 then under strict sterile technique using a right oblique fluoroscopy ,the junction of the transverse process and the superior articulating process of the right L3- 4 , L4- 5, and L5-S1 vertebra which corresponding to the fluoroscopy image of the eye of the Fito dog on the block side for the medial branches and subsequently , after local infiltration of skin and subcu tissuies with Ropivacaine 0.5 % , one mL at each level ,then 25-gauge Quincke-type needles , 3 needle was used , each one of them placed at the junction of the base of the transverse process and the superior articular process at the appropriate level, and the needle was advanced until the periosteum contacted, needle placement confirmed with AP oblique and lateral view and after appropriate needle placement confirmed, and after negative aspiration for heme and CSF and there was no paresthesia 1-1/2 mL of Ropivacaine 0.5% mixed with 20 mg Depo-Medrol , then half mL injected at each level after negative aspiration the needle subsequently removed and the same procedure repeated for the left side at left side at L3-4, L4- 5 and L5-S1 levels. At the end of the procedure and the needles removed and a bandage applied after the skin was cleaned the cleaning solution patient taken to recovery room in stable condition and monitors in the recovery room for 20-30 minutes and discharged home in stable condition after discharge criteria met and patient will follow up with the pain clinic in 2-4 weeks
[2018-10-02 08:39] VITALS: BP 114/66; PULSE 58
[2018-10-02] MEDS ORDERED: IV FLUID CONTINUATION 1,000 ML IV ONE (08:42)
--- NOTE | 2018-10-02 09:06 | FL ---
EXAMINATION TYPE: FL guided pain mgmt statistic DATE OF EXAM: 10/02/2018 CLINICAL HISTORY: Low back pain. TECHNIQUE: Fluoroscopy. COMPARISON: None. FINDINGS: Fluoroscopic guidance was provided during pain relief procedure performed by Dr. Patel . A total of 6 seconds of fluoroscopic time was utilized during the procedure and 4 spot images are acquired. Images acquired shows needle localization at multiple levels of the lumbar spine. IMPRESSION: As Above.
== END 2018-10-02 08:55 | disposition home or self-care (01) ==
LOC: ORPAIN 07:01
PROVIDERS: ATTEND Specialist
DX: G89.29 Other chronic pain (principal); M47.816 Spondylosis without myelopathy or radiculopathy, lumbar region; M51.36 Other intervertebral disc degeneration, lumbar region
CPT/HCPCS: 81025; 64493; 64494; 64495; J1030; 99152

== ENCOUNTER → 2018-10-25 | Outpatient (CLI) | payer BC ==
[2018-10-25 10:49] VITALS: BP 151/80; PULSE 64; RESP 16
--- NOTE | 2018-10-25 12:02 | P.PAINPG ---
Subjective Progress Note Date: 10/25/18 This is a follow-up visit for this 53 years old female with a chronic history of low back pain, diagnosed with lumbar spondylosis with lumbar facet arthropathy, with done diagnostic medial branch block lumbar area, patient reported that she get 50% improvement of her low back pain after the first diagnostic medial branch block her VAS was 8/10 before the first agnostic block dropped to 4/10, the second diagnostic medial branch block she has no change in her pain level, pain was the same before and after the block, the third diagnostic block her pain level was 8/10 dropped to 4/10, and the pain relief was only for a few days, she continues to have severe low back pain the pain interferes with her qu ality of life, she had occasional weakness in her lower extremity, and occasional numbness in the lower extremity, she was also diagnosed with MS, she denies any fever or night sweats Objective - Vital Signs Vital signs: Vital Signs Temp Pulse 64 10/25/18 10:42 Resp 16 10/25/18 10:42 BP 151/80 10/25/18 10:42 Pulse Ox 99 10/25/18 10:42 Intake & Output 10/24/18 10/25/18 10/25/18 18:59 06:59 18:59 Weight 51.256 kg - Exam Physical Examinations : -Constitutiona : Cooperative , not in acute distress . -HEENT : nech ; supple , no Lymphadenopathy , normal thyroid size . eyes : no ptosis , no icterus, no photophobia . ENT : normal of hearing , normal oropharynx , no Thrush . - Respiratory : Chest clear to auscultations Bilaterally , no wheezing , no Rhonchi . - Cardiovascula : regular rate and rhythem , S1 , S2 , no S3 , no S4. - Gastrointestina : abdomen soft no tenderness , bowel sounds , no organomegally . - Genitourinary : Defferred . - neurologic : Cranial nerve II to XII intact , no focal neurological deffecit . -psychatric : alert , oriented X 3 , appropriate affect , intact judgment and insight . -Lymphatic : no Lymphadenopathy . - musculoskeltal : Lumber spine moter stegnth lower extremities ,thigh and legs 5/5 Right side , 5/5 Left side deep tendon reflexes : normal Knee Jerk , normal ankle Jerk positive lumber facet Loading Test Range of motion of the lumbar spine Flexion 30 degrees, extension 10 degrees strait leg raising test , positive at 30 degree Fabere test positive RT and positive LT . Moderate tenderness over the Sacroiliac joint on the R and L sides Assessment and Plan Plan: Assessment and plan= chronic low back pain secondary to lumbar spondylosis with lumbar facet arthropathy Patient had 2 positive results after the diagnostic medial branch block she would be good candidate for radiofrequency ablation of the medial branch L34, L45 ,L5S1 left side first ,then right side later . Time with Patient: Less than 30 PQRS Measure Charge Sheet Measure #130: Documentation of Current Meds in Medical Chart: Patient's medications documented in chart Measure #226: Tobacco Use: Screen & Cessation Intervention: Pt screened for tobacco use AND intervention given Measure #111: Pneumonia Vaccination: Pneumococcal vaccine NOT administered or previously given Measure #47: Advance Care Plan: Advance care planning discussed & documented, pt chose/unable to give Measure #412: Opioid Treatment Agreement: No documentation of signed opioid treatment agreement Measure #408: Opioid Therapy Follow-up Evaluation: Patient had NO f/u eval minimum every 3 months during opioid therapy Measure #317: Preventitive Care & Scrn High Bld Press & F/U: Pre-hypertensive or hypertensive BP documented, pt will f/u with PCP Measure #128: Body Mass Index (BMI) Screening & Follow-up: BMI documented within normal parameters Measure #131: Pain Assessment & Follow-up: Pain positive & plan documented, Follow-up scheduled Measure #431: Unhealthy Alcohol Use Preventative Care & Scrn: Patient not identified as an unhealthy alcohol user PQRS Narrative: Smoking Status Current every day smoker Blood Pressure 151/80 Pain Intensity [Left Lower 7 Back] Scale Used Numeric (1 - 10) Hx Alcohol Use (MH) Yes: social Home Medications: Ambulatory Orders Cholecalciferol [Vitamin D3] 10,000 unit PO BID 07/09/16 Topiramate [Topamax] 100 mg PO HS PRN 07/09/16 Propranolol [Inderal] 20 mg PO QAM 08/01/16 Ibuprofen 400 mg PO Q6H PRN 07/25/18 Pantoprazole Sodium 40 mg PO DAILY 07/25/18 Teriflunomide [Aubagio] 7 mg PO DAILY 07/25/18 Sucralfate [Carafate] 1 gm PO TID 10/25/18 Controlled Substance Measures - Controlled Substance Measures Is patient prescribed a controlled substance at discharge?: No
== END | disposition home or self-care (01) ==
LOC: PNWHC3 10:30
PROVIDERS: ATTEND Specialist
DX: G89.29 Other chronic pain (principal); M47.816 Spondylosis without myelopathy or radiculopathy, lumbar region; M46.86 Other specified inflammatory spondylopathies, lumbar region; G35 Multiple sclerosis; F17.200 Nicotine dependence, unspecified, uncomplicated; Z71.6 Tobacco abuse counseling; Z79.899 Other long term (current) drug therapy
CPT/HCPCS: 99211

== ENCOUNTER 2018-11-08 08:33 | Day surgery (SDC) | payer BC ==
[2018-11-06 09:27] VITALS: BMI 21.4
[2018-11-08 09:42] VITALS: RESP 16; TEMP 97.7
[2018-11-08] MEDS ORDERED: LACTATED RINGERS 1,000 ML IV ONE (09:42)
[2018-11-08] MEDS ORDERED: LIDOCAINE 1% 20 ML VIAL (10MG/ML) FOR IV START INTRADERMA ONE (09:43)
--- NOTE | 2018-11-08 10:19 | P.PCN ---
Date of Procedure: 11/08/18 Description of Procedure: PREOPERATIVE DIAGNOSIS: Lumbar Facet Arthropathy. POSTOPERATIVE DIAGNOSIS: Lumbar Facet Arthropathy. PROCEDURES: LEFT Radiofrequency thermocoagulation of L3-4, L4-5, L5-S1 medial branches, with fluoroscopic guidance ANESTHESIA: IV sedation with versed and fentanyl and local infiltration with lidocaine 1% 10 ml PROCEDURE INDICATION: The patient with low back pain secondary to lumbar facet arthropathy who had more than 50% relief of pain with previous diagnostic lumbar medial branch block with local anesthetic. PROCEDURE DESCRIPTION / TECHNIQUE: The patient was seen and identified in the preoperative area. Risks, benefits, complications, including but not limited to risk of infection ,bleeding , allergic reactions to the medications and no complete pain relief , and alternatives were discussed with the patient, the patient agreed to proceed with the procedure and signed the consent. IV was started. Vital signs remained stable throughout the procedure. Patient was taken to the OR and time out was completed. The patient was placed in the prone position on the procedure table. The lumber area was prepped and draped in the usual sterile fashion. Vital signs were closely monitored during the procedure. IV sedation was used during the procedure to decrease patient anxiety. Using AP and then oblique fluoroscopy, the eye of the Fito dog corresponding to the connection between the superior and transverse articular processes of L3, L4, L5, and sacral Ala were identified, marked, and localized with 1% lidocaine. Subsequently, a 20 [id number] radiofrequency cannula with a 10-mm active tip was advanced guided by fluoroscopy to the junction of the pedicle and transverse process of each identified level. Each site then underwent sensory testing at 50 Hz and 0 to 1 volt and motor testing at 2.5 Hz and 0 to 3 volt with local stimulation, no radicular symptoms sensed by the patient and no obvious motor stimulation noted. Thereafter the tested sites underwent radiofrequency thermocoagulation at 80 degrees celsius for 90 seconds after injecting 1 ml of PF lidocaine 1%. Then after the thermocoagulation was done, 1 ml of the block solution containing ropivaciane 0.5% was injected at the lesioned sites after negative aspiration of CSF and blood and with no paresthesias. Cannulas were retracted. At the end of the procedure, the skin was cleansed and bandages were applied. COMPLICATIONS: No acute complications. DISPOSITION / PLANS: The patient was placed in a supine position and t ransferred to the recovery area in a stable condition for observation and was discharged from the recovery room after meeting discharge criteria. Home discharge instructions given to the patient by the staff. The patient was reexamined prior to discharge. Patient follow-up in the clinic in 4-8 weeks' time to be reevaluated
[2018-11-08] MEDS ORDERED: IV FLUID CONTINUATION 550 ML IV ONE (10:45)
[2018-11-08 11:09] VITALS: BP 134/73; PULSE 57
--- NOTE | 2018-11-08 12:33 | FL ---
EXAMINATION TYPE: FL guided pain mgmt statistic DATE OF EXAM: 11/08/2018 CLINICAL HISTORY: Low back pain. TECHNIQUE: Fluoroscopy. COMPARISON: None. FINDINGS: Fluoroscopic guidance was provided during pain relief procedure performed by Dr. Swain. A total of 9 seconds of fluoroscopic time was utilized during the procedure and two spot images are acquired. Images acquired shows needle localization at multiple levels of the lumbar spine. IMPRESSION: As Above.
== END 2018-11-08 11:24 | disposition home or self-care (01) ==
LOC: ORPAIN 08:33
PROVIDERS: ATTEND Hospitalist
DX: G89.29 Other chronic pain (principal); M46.96 Unspecified inflammatory spondylopathy, lumbar region; G35 Multiple sclerosis; F17.200 Nicotine dependence, unspecified, uncomplicated; Z79.899 Other long term (current) drug therapy; Z79.1 Long term (current) use of non-steroidal anti-inflammatories (NSAID)
CPT/HCPCS: 81025; 64635; 64636 ×2; J1030; 99152

== ENCOUNTER → 2018-12-03 | Outpatient (CLI) | payer BC ==
[2018-12-03 12:27] VITALS: BP 138/76; PULSE 60; RESP 16
--- NOTE | 2018-12-03 15:38 | P.PN ---
Subjective Progress Note Date: 12/03/18 This is a follow-up visit for this 53 years old female with a chronic history of low back pain, diagnosed with lumbar spondylosis with lumbar facet arthropathy, with done diagnostic medial branch block lumbar area, recently we did the radiofrequency ablation of the medial branch on the left side, she had good pain relief and currently she is complaining of severe low back pain on the right side, the pain interferes with her quality of life, she had occasional weakness in her lower extremity, and occasional numbness in the lower extremity, she was also diagnosed with MS, she denies any fever or night sweats Physical Examinations : -Constitutiona : Cooperative , not in acute distress . -HEENT : nech ; supple , no Lymphadenopathy , normal thyroid size . eyes : no ptosis , no icterus, no photophobia . ENT : normal of hearing , normal oropharynx , no Thrush . - Respiratory : Chest clear to auscultations Bilaterally , no wheezing , no Rhonchi . - Cardiovascula : regular rate and rhythem , S1 , S2 , no S3 , no S4. - Gastrointestina : abdomen soft no tenderness , bowel sounds , no organomegally . - Genitourinary : Defferred . - neurologic : Cranial nerve II to XII intact , no focal neurological deffecit . -psychatric : alert , oriented X 3 , appropriate affect , intact judgment and insight . -Lymphatic : no Lymphadenopathy . - musculoskeltal : Lumber spine moter stegnth lower extremities ,thigh and legs 5/5 Right side , 5/5 Left side deep tendon reflexes : normal Knee Jerk , normal ankle Jerk positive lumber facet Loading Test Range of motion of the lumbar spine Flexion 30 degrees, extension 10 degrees strait leg raising test , positive at 30 degree Fabere test positive RT and positive LT . Moderate tenderness over the Sacroiliac joint on the R and L sides Assessment and plan= chronic low back pain secondary to lumbar spondylosis with lumbar facet arthropathy Status post radiofrequency ablation of the left side medial branch L34, L4 5 , L5-S1 she is good candidate for radiofrequency ablation of the right side medial branch at L3 4, L4 5, L5-S1 Time with Patient: Less than 30 PQRS Measure Charge Sheet Measure #130: Documentation of Current Meds in Medical Chart: Patient's medications documented in chart Measure #226: Tobacco Use: Screen & Cessation Intervention: Pt screened for tobacco use AND intervention given Measure #111: Pneumonia Vaccination: Pneumococcal vaccine NOT administered or previously given Measure #47: Advance Care Plan: Advance care planning discussed & documented, pt chose/unable to give Measure #412: Opioid Treatment Agreement: No documentation of signed opioid treatment agreement Measure #408: Opioid Therapy Follow-up Evaluation: Patient had NO f/u eval minimum every 3 months during opioid therapy Measure #317: Preventitive Care & Scrn High Bld Press & F/U: normal BP 178/76 documented, pt will f/u with PCP Measure #128: Body Mass Index (BMI) Screening & Follow-up: BMI documented within normal parameters Measure #131: Pain Assessment & Follow-up: Pain positive & plan documented, Follow-up scheduled Measure #431: Unhealthy Alcohol Use Preventative Care & Scrn: Patient not identified as an unhealthy alcohol user PQRS Narrative: - Controlled Substance Measures Is patient prescribed a controlled substance at discharge?: No Objective - Vital Signs Vital signs: Vital Signs Temp Pulse 60 12/03/18 12:15 Resp 16 12/03/18 12:15 BP 138/76 12/03/18 12:15 Pulse Ox Intake & Output 12/02/18 12/03/18 12/03/18 18:59 06:59 18:59 Weight 51.71 kg
== END | disposition home or self-care (01) ==
LOC: PNWHC3 12:09
PROVIDERS: ATTEND Specialist
DX: G89.29 Other chronic pain (principal); M47.816 Spondylosis without myelopathy or radiculopathy, lumbar region; M46.96 Unspecified inflammatory spondylopathy, lumbar region; Z98.890 Other specified postprocedural states
CPT/HCPCS: 99211

== ENCOUNTER → 2019-03-27 | Outpatient (CLI) | payer BC ==
[2019-03-27 11:26] LABS: Basophils # (A) 0.1 k/uL (0-0.2); Basophils % (A) 1 %; Eosinophils # (A) 0.3 k/uL (0-0.7); Eosinophils % (A) 3 %; HCT 42.9 % (34.0-46.0); Lymphocytes # (A) 2.6 k/uL (1.0-4.8); Lymphocytes % (A) 28 %; MCH 30.6 pg (25.0-35.0); MCHC 32.7 g/dL (31.0-37.0); MCV 93.8 fL (80.0-100.0); Mean Platelet Volume 8.4; Monocytes # (A) 0.4 k/uL (0-1.0); Monocytes % (A) 5 %; Neutrophils # (A) 5.5 k/uL (1.3-7.7); Neutrophils % (A) 61 %; Platelet Count 160 k/uL (150-450); RBC 4.58 m/uL (3.80-5.40)
[2019-03-27 16:21] LABS: African American GFR (CKD) 98.2 (60.0-200.0); Albumin 4.7 g/dL (3.80-4.90); Albumin/Globulin Ratio 2.35 (1.60-3.17); Anion Gap 11.1 mmol/L (4.00-12.00); Calcium 10.1 mg/dL (8.7-10.3); Carbon Dioxide 27.9 mmol/L (21.6-31.8); Chol/HDL Ratio 3.11; LDL Cholesterol,Calculated 139.4 mg/dL (0.0-131.0); Potassium 4.1 mmol/L (3.5-5.5); Total Bilirubin 1.1 mg/dL (0.2-1.2); Total Protein 6.7 g/dL (6.2-8.2); VLDL Calculation 18.6 mg/dL (5.00-40.00)
== END | disposition home or self-care (01) ==
LOC: LABWHC1 10:35
PROVIDERS: ATTEND Psychiatry & Neurology Neurology
DX: G35 Multiple sclerosis (principal); M51.9 Unspecified thoracic, thoracolumbar and lumbosacral intervertebral disc disorder; G51.9 Disorder of facial nerve, unspecified
CPT/HCPCS: 36415; 80053; 80061; 82306; 85025

== ENCOUNTER → 2019-04-10 | Outpatient (CLI) | payer BC ==
--- NOTE | 2019-04-10 16:35 | MR ---
EXAMINATION TYPE: MR brain wo/w con DATE OF EXAM: 04/10/2019 COMPARISON: 07/08/2016 HISTORY: 54-year-old female with history of Relapsing remitting multiple sclerosis TECHNIQUE: Multiplanar, multisequence images of the brain and brainstem is performed without and with utilizing 5 mL intravenous Gadavist gadolinium contrast. Demyelinating disease protocol with additi onal Sagittal Flair sequence performed. FINDINGS: T2 Lesions Present : Yes Approximate Number of Lesions: 25-30 in each cerebral hemisphere. Locations Identified : A few cortical lesions. More numerous juxtacortical and periventricular lesion s. Many periventricular lesions show Perea finger configuration radiating perpendicularly from the c orpus callosum. Size of Reference Lesion(s): 1. 9 x 8 x 7 mm superior left ventricular, axial image 22 and sagittal image 15. 2 1.3 x 0.6 x 0.5 cm subcortical region of the posterior aspect of the right frontal lobe, superior ly. Refer to axial image 26 and sagittal image 24. Enhancing Lesion(s) Present: No T1 Hypointense Lesion(s) Present: Yes Change from Prior: Not significantly changed. Diffusion weighted images demonstrate no evidence of a recent infarct or other diffusion abnormality. There is no worrisome extra-axial fluid collection. The ventricular system and cisternal spaces ar e normal in size and appearance. The brain volume is age appropriate. Prominent arachnoid granulations posteriorly in the region of the dural venous sinus confluence. Somewhat small caliber to the visualized posterior circulation may contribute to chronic symptoms of vertebrobasilar insufficiency and can be correlated clinically. Midline structures demonstrate normal morphology. The craniocervical junction appears within normal limits. Post contrast images demonstrate no abnormal enhancement. The dural venous sinuses appear pa tent. 1.2 cm mucous retention cyst floor of the right maxillary sinus. Scattered mild mucosal thickening et hmoid air cells, bilateral maxillary sinuses, and near complete opacification right sphenoid sinus. G lobes are intact. IMPRESSION: 1. Overall stable moderate burden of demyelinating plaques with some Perea fingers. No active demyel inating plaques identified. 2. Incidentally, somewhat small caliber to the visualized posterior circulation may contribute to chr onic symptoms of chronic vertebrobasilar insufficiency. Clinically correlate. 3. Moderate chronic paranasal sinus disease.
== END | disposition home or self-care (01) ==
LOC: RADMRIMAIN 14:59
PROVIDERS: ATTEND Psychiatry & Neurology Neurology
DX: G37.8 Other specified demyelinating diseases of central nervous system (principal); G35 Multiple sclerosis
CPT/HCPCS: 70553; A9585

== ENCOUNTER → 2019-11-23 | Outpatient (CLI) | payer BC ==
--- NOTE | 2019-11-24 20:47 | CT ---
EXAMINATION TYPE: CT abdomen wo/w con DATE OF EXAM: 11/23/2019 COMPARISON: 07/10/2016 HISTORY: 54-year-old female epigastric pain, abdominal pain, weight loss TECHNIQUE: Contiguous axial scanning of the abdomen and pelvis following administration of 100 ml Iso remi 300 IV contrast. Delayed images through the kidneys and coronal/sagittal reconstructions perform ed. CT DLP: 422.5 mGycm Automated exposure control for dose reduction was used. FINDINGS: Heart normal size without pericardial effusion. Lung bases clear without pleural effusion. Small 7 mm hypodensity along the anterior falciform ligament, probable focal fat. No other focal live r lesion. No biliary ductal dilatation. Portal venous system is patent. Cholecystectomy clips. Adrenal glands, kidneys, spleen, and pancreas appear within normal limits. No dilated small bowel, free fluid, or free air. No mesenteric or retroperitoneal lymphadenopathy baldomero ntified allowing for paucity of intra-abdominal fat. Mild to moderate stool burden. No pericolonic inflammatory change identified. Pelvis not imaged. Bones: No osseous destructive process. IMPRESSION: NO ACUTE INFLAMMATORY PROCESS IDENTIFIED IN THE ABDOMEN TO EXCLUDE THE PATIENT'S SYMPTOMS. A 7 MM HYPODENSITY ALONG THE ANTERIOR FALCIFORM LIGAMENT PROBABLY REPRESENTS SOME FOCAL FAT WITHIN TH E LIVER BUT WAS NOT SEEN IN 2017. SIX-MONTH FOLLOW-UP CT RECOMMENDED TO REASSESS.
== END | disposition home or self-care (01) ==
LOC: RADCTMAIN 07:05
PROVIDERS: ATTEND Internal Medicine Gastroenterology
DX: R10.13 Epigastric pain (principal)
CPT/HCPCS: 74170; Q9967

== ENCOUNTER 2020-01-08 06:58 | Day surgery (SDC) | payer BC ==
[2020-01-06 08:40] VITALS: BMI 19.3
[2020-01-08 07:48] VITALS: RESP 16; TEMP 97
[2020-01-08] MEDS ORDERED: LIDOCAINE 1% (10MG/ML) FOR IV START INTRADERMA ONE (07:50)
[2020-01-08] MEDS ORDERED: LIDOCAINE 1% INJ 10MG/ML (20 ML MDV) ONE (07:56)
[2020-01-08] MEDS ORDERED: PROPOFOL 10 MG/ML 20 ML VIAL IV ONE (07:56)
--- NOTE | 2020-01-08 08:15 | P.PCN ---
Date of Procedure: 01/08/20 Procedure(s) Performed: Brief history: Patient is a pleasant 54-year-old white female scheduled for an elective upper endoscopy as well as colonoscopy as a part of evaluation of epigastric pain, persistent nausea since July.. She lost 20 pounds. Has altered bowel movements with several soft bowel movements daily. No active bleeding. Procedure performed: Esophagogastroduodenoscopy with biopsy Colonoscopy with biopsy Preoperative diagnosis: Epigastric pain, nausea Change In bowel habits and progressive weight loss Anesthesia: MAC Procedure: After informed consent was obtained from the patient was brought into the endoscopy unit and IV sedation was administered by anesthesia under continuous monitoring. Initially upper endoscopy was done. The Olympus GF 160 video endoscope was inserted inserted into the mouth and esophagus intubated without any difficulty and was gradually advanced into the stomach and duodenum and carefully examined. The bulb and second part of the duodenum appeared normal. Biopsies were done from the duodenum to rule out celiac disease. The scope was then withdrawn into the stomach adequately insufflated with air and upon careful examination the antrum had diffuse gastritis and biopsies were done from this area. The body, cardia and fundus appeared normal. The scope was then withdrawn into the esophagus. The GE junction was located at 40 cm to the incisors. It appeared regular with no erythema erosions or ulcerations. Rest of the esophagus appeared normal. abscesses were done from the distal esophagus. Patient tolerated the procedure well. At this time the patient continued to remain sedation. Initial digital rectal examination was normal. Olympus CF 160 video colonoscope was then inserted into the rectum and gradually advanced to the cecum without any difficulty. Careful examination was performed as the scope was gradually being withdrawn. The prep was excellent. The cecum, ascending colon, transverse colon, descending colon, sigmoid colon and rectum appeared normal. Scattered sigmoid diverticulosis. Random biopsies were done from ascending and descending colon to rule out microscopic colitis Retroflexion was performed in the rectum and no lesions were noted. Patient tolerated the procedure well. Impression: 1. Upper endoscopy revealed mild diffuse gastritis with no evidence of peptic ulcer disease 2. Colonoscopy was essentially within normal limits except for scattered sigmoid diverticulosis. Recommendations: Findings of this examination were discussed with the patient as well as for family. She was advised to follow with the biopsy results. She'll be seen in office in 1-2 weeks.
[2020-01-08 08:37] VITALS: BP 157/84; PULSE 62
== END 2020-01-08 09:04 | disposition home or self-care (01) ==
LOC: ORWHC2ENDO 06:58
PROVIDERS: ATTEND Internal Medicine Gastroenterology
DX: K29.50 Unspecified chronic gastritis without bleeding (principal); R19.4 Change in bowel habit; R63.4 Abnormal weight loss; K57.30 Diverticulosis of large intestine without perforation or abscess without bleeding; Z79.899 Other long term (current) drug therapy; F17.210 Nicotine dependence, cigarettes, uncomplicated; M19.90 Unspecified osteoarthritis, unspecified site; K21.9 Gastro-esophageal reflux disease without esophagitis; Z79.1 Long term (current) use of non-steroidal anti-inflammatories (NSAID)
CPT/HCPCS: 88305; 45380; 43239; J2001; J2704

== ENCOUNTER → 2020-06-02 | Outpatient (CLI) | payer BC ==
--- NOTE | 2020-06-02 10:13 | CT ---
EXAMINATION TYPE: CT abdomen wo/w con DATE OF EXAM: 06/02/2020 HISTORY: Follow up to prior abn CT of liver CT DLP: 307mGycm Automated Exposure Control for Dose Reduction was Utilized. CONTRAST: CT scan of the abdomen is performed with oral and without and with IV Contrast, patient injected with 100 mL of Isovue 300. COMPARISON: CT abdomen November 23, 2019 and older studies. MRCP July 28, 2016 FINDINGS: LUNG BASES: No significant abnormality is appreciated. LIVER/GB: Stable 8 mm hypodense focus anteriorly along falciform ligament on axial image 14 series 7 in retrospect not significantly changed from July 10, 2016 CT. Is not clearly seen on MRCP imaging . The lesion is isodense on noncontrast and delayed phase images. Benign etiology strongly favored. C onsider transient hepatic attenuation difference. Cholecystectomy clips are redemonstrated. PANCREAS: No significant abnormality is seen. SPLEEN: No significant abnormality is seen. ADRENALS: No significant abnormality is seen. KIDNEYS: No significant abnormality is seen. BOWEL: Oral contrast does not reach colonic loops. No suspicious small or large bowel dilatation. Pat ient has little intra-abdominal fat. LYMPH NODES: No greater than 1cm abdominal lymph nodes are appreciated. OSSEOUS STRUCTURES: No significant abnormality is seen. OTHER: Mild/moderate calcified plaque of the aorta extends into branch vessels. Focal narrowing of ce liac artery origin sagittal image 53 for reference. Cannot exclude celiac artery compression syndrome in appropriate setting. Correlate clinically. IMPRESSION: Subcentimeter area of concern liver presumed benign. No new lesions identified.
== END | disposition home or self-care (01) ==
LOC: RADCTMAIN 07:54
PROVIDERS: ATTEND Physician Assistant
DX: R93.5 Abnormal findings on diagnostic imaging of other abdominal regions, including retroperitoneum (principal)
CPT/HCPCS: 74170; Q9967

== ENCOUNTER → 2020-07-22 | Outpatient (CLI) | payer BC ==
[2020-07-22 13:17] LABS: Basophils # (A) 0.1 k/uL (0-0.2); Basophils % (A) 1 %; Eosinophils # (A) 0.3 k/uL (0-0.7); Eosinophils % (A) 4 %; HCT 42.9 % (34.0-46.0); HGB 13.8 gm/dL (11.4-16.0); Lymphocytes # (A) 3.7 k/uL (1.0-4.8); Lymphocytes % (A) 43 %; MCH 30.1 pg (25.0-35.0); MCHC 32.1 g/dL (31.0-37.0); MCV 93.6 fL (80.0-100.0); Mean Platelet Volume 9.2; Monocytes # (A) 0.5 k/uL (0-1.0); Monocytes % (A) 6 %; Neutrophils # (A) 3.7 k/uL (1.3-7.7); Neutrophils % (A) 44 %; Platelet Count 152 k/uL (150-450); RBC 4.59 m/uL (3.80-5.40); RDW 12.9 % (11.5-15.5); WBC 8.5 k/uL (3.8-10.6)
[2020-07-22 13:32] LABS: Albumin 4.2 g/dL (3.5-5.0); Albumin/Globulin Ratio 1.5; Bilirubin,Unconjugated 0.9 mg/dL (0.0-1.1); Globulin 2.8 g/dL; Total Bilirubin 0.9 mg/dL (0.2-1.3)
== END | disposition home or self-care (01) ==
LOC: LABWHC1 12:36
PROVIDERS: ATTEND Psychiatry & Neurology Neurology
DX: G35 Multiple sclerosis (principal); Z79.899 Other long term (current) drug therapy
CPT/HCPCS: 36415; 80076; 82306; 85025

== ENCOUNTER → 2021-02-18 | Outpatient (CLI) | payer BC ==
[2021-02-19 11:14] LABS: V. zoster Source Blood - Plasma
== END | disposition home or self-care (01) ==
LOC: LABWHC1 12:00
PROVIDERS: ATTEND Psychiatry & Neurology Neurology
DX: G44.1 Vascular headache, not elsewhere classified (principal); M54.12 Radiculopathy, cervical region
CPT/HCPCS: 36415; 86618; 86787; 87798

== ENCOUNTER → 2021-07-05 | Outpatient (CLI) | payer BC ==
[2021-07-05 23:00] LABS: ALT 17 U/L (8-44); AST 23 U/L (13-35); Albumin 4.4 g/dL (3.8-4.9); Albumin/Globulin Ratio 1.84 (1.60-3.17); Alkaline Phosphatase 123 U/L (41-126); Bilirubin, Conjugated <0.20 mg/dL (0.20-0.40); Globulin 2.4 g/dL (1.6-3.3); Total Protein 6.9 g/dL (6.2-8.2)
[2021-07-05 23:15] LABS: Basophils # (A) 0.06 X 10*3/uL (0.00-0.10); Basophils % (A) 0.7 %; Eosinophils # (A) 0.17 X 10*3/uL (0.04-0.35); HCT 42.9 % (37.2-46.3); HGB 13.5 g/dL (12.0-15.0); Lymphocytes # (A) 1.96 X 10*3/uL (0.90-5.00); Lymphocytes % (A) 23.2 %; MCH 29.2 pg (27.0-32.0); MCHC 31.5 g/dL (32.0-37.0); MCV 92.9 fL (80.0-97.0); Mean Platelet Volume 13.6 fL (9.5-12.2); Monocytes # (A) 0.62 X 10*3/uL (0.20-1.00); Monocytes % (A) 7.3 %; Neutrophils # (A) 5.62 X 10*3/uL (1.80-7.70); Neutrophils % (A) 66.4 %; Platelet Count 157 X 10*3/uL (140-440); RBC 4.62 X 10*6/uL (4.10-5.20); RDW 13.4 % (11.5-14.5); WBC 8.46 X 10*3/uL (4.50-10.00)
[2021-07-06 12:28] LABS: T4/T8 Ratio (CD4:CD8) 3.8 (1.0-3.7)
== END | disposition home or self-care (01) ==
LOC: LABWHC1 14:54
PROVIDERS: ATTEND Psychiatry & Neurology Neurology
DX: G35 Multiple sclerosis (principal)
CPT/HCPCS: 36415; 80076; 85025; 86355; 86357; 86359; 86360

== ENCOUNTER 2022-05-07 09:59 | Emergency (ER) | payer BC ==
[2022-05-07 10:14] VITALS: TEMP 98.7
--- NOTE | 2022-05-07 10:52 | ED ---
General Adult HPI - General Chief complaint: Recheck/Abnormal Lab/Rx Stated complaint: Head/Neck Pain Time Seen by Provider: 05/07/22 10:15 Source: patient Mode of arrival: ambulatory Limitations: no limitations - History of Present Illness Initial comments: This a 57-year-old female presents emergency department stating that she has a 3 month history of a hot feeling in her neck and then it goes up into her posterior skull and into the front of her head. Patient states it's bilateral. Patient denies any numbness or weakness. Patient states usually lasts about 5 minutes and then subsides. Patient states his been going on and off sometimes once a day sometimes 4 times a day but it always resolves on its own. Patient states she has not been followed up for this. Patient states she went in today for the first time and the urgent care center to the emergency department. Patient denies any fever chills. Patient denies any new medications. Patient denies any rashes. Patient denies any chest pain difficult breathing shortness of breath. Patient denies any syncopal or near syncopal episode. Patient currently states she does not have any pain. Patient states movement of the neck never makes it worse. Patient denies any injury. Patient does have a history of cervical spine surgery 2 - Related Data Home Medications Medication Instructions Recorded Confirmed Cholecalciferol [Vitamin D3] 5,000 unit PO DAILY 07/09/16 07/28/20 Propranolol [Inderal] 20 mg PO QAM 08/01/16 07/28/20 Ibuprofen 400 mg PO Q6H PRN 07/25/18 07/28/20 Pantoprazole Sodium 40 mg PO BID 07/25/18 07/28/20 Allergies Allergy/AdvReac Type Severity Reaction Status Date / Time No Known Allergies Allergy Verified 05/07/22 10:12 Review of Systems ROS Statement: Those systems with pertinent positive or pertinent negative responses have been documented in the HPI. ROS Other: All systems not noted in ROS Statement are negative. Past Medical History Past Medical History: GERD/Reflux, Musculoskeletal Disorder, Neurologic Disorder, Osteoarthritis (OA) Additional Past Medical History / Comment(s): Current frequent nausea and weight loss of 10 lbs, Multiple sclerosis; hx of "bad headaches", bulging disk in lower back. History of Any Multi-Drug Resistant Organisms: None Reported Past Surgical History: Section, Cholecystectomy, Orthopedic Surgery, Uterine Ablation Additional Past Surgical History / Comment(s): cervical fusion Past Anesthesia/Blood Transfusion Reactions: Previous Problems w/ Anesthesia Additional Past Anesthesia/Blood Transfusion Reaction / Comment(s): "I get real shaky after anesthesia", had leak after lumbar puncture & needed blood patch Past Psychological History: No Psychological Hx Reported Smoking Status: Current every day smoker - Past Family History Father Family Medical History: Cancer Sister(s) Additional Family Medical History / Comment(s): "blood clot in her chest" General Exam - General Exam Comments Initial Comments: GENERAL: Patient is well-developed and well-nourished. Patient is nontoxic and well- hydrated and is in mild distress. ENT: Neck is soft and supple. No significant lymphadenopathy is noted. Oropharynx is clear. Moist mucous membranes. Neck has full range of motion without eliciting any pain. EYES: The sclera were anicteric and conjunctiva were pink and moist. Extraocular movements were intact and pupils were equal round and reactive to light. Eyelids were unremarkable. PULMONARY: Unlabored respirations. Good breath sounds bilaterally. No audible rales rhonchi or wheezing was noted. CARDIOVASCULAR: There is a regular rate and rhythm without any murmurs gallops or rubs. ABDOMEN: Soft and nontender with normal bowel sounds. SKIN: Skin is clear with no lesions or rashes and otherwise unremarkable. NEUROLOGIC: Patient is alert and oriented x3. Cranial nerves II through XII are grossly intact. Motor and sensory are also intact. Normal speech, volume and content. Symmetrical smile. MUSCULOSKELETAL: Normal extremities with adequate strength and full range of motion. LYMPHATICS: No significant lymphadenopathy is noted PSYCHIATRIC: Normal psychiatric evaluation. Limitations: no limitations Course Vital Signs 05/07/22 10:12 Temperature 98.7 F Pulse Rate 50 L Respiratory 16 Rate Blood Pressure 113/69 O2 Sat by Pulse 100 Oximetry Medical Decision Making - Medical Decision Making I interpreted the CT of the brain. CT of the brain showed no acute abnormality no bleed no mass effect. Patient was asymptomatic throughout her ED stay. Patient will follow-up with [facility] medical care doctor and possibly neurology. - Lab Data Result diagrams: 05/07/22 10:57 05/07/22 10:57 Lab Results 05/07/22 05/07/22 Range/Units 10:57 10:57 WBC 5.0 (3.8-10.6) k/uL RBC 4.70 (3.80-5.40) m/uL Hgb 14.5 (11.4-16.0) gm/dL Hct 43.8 (34.0-46.0) % MCV 93.1 (80.0-100.0) fL MCH 30.8 (25.0-35.0) pg MCHC 33.1 (31.0-37.0) g/dL RDW 13.2 (11.5-15.5) % MPV 10.9 Sodium 140 (137-145) mmol/L Potassium 4.7 (3.5-5.1) mmol/L Chloride 107 (98-107) mmol/L Carbon Dioxide 29 (22-30) mmol/L Anion Gap 4 mmol/L BUN 15 (7-17) mg/dL Creatinine 0.70 (0.52-1.04) mg/dL Est GFR (CKD-EPI)AfAm >90 (>60 ml/min/1.73 sqM) Est GFR (CKD-EPI)NonAf >90 (>60 ml/min/1.73 sqM) Glucose 91 (74-99) mg/dL Calcium 8.6 (8.4-10.2) mg/dL Magnesium 2.1 (1.6-2.3) mg/dL Total Bilirubin 0.6 (0.2-1.3) mg/dL AST 33 (14-36) U/L ALT 23 (4-34) U/L Alkaline Phosphatase 94 (38-126) U/L Total Protein 6.6 (6.3-8.2) g/dL Albumin 4.3 (3.5-5.0) g/dL Disposition Clinical Impression: Cephalgia Disposition: HOME SELF-CARE Condition: Good Is patient prescribed a controlled substance at d/c from ED?: No Referrals: Abisai Bird MD [Primary Care Provider] - 1-2 days Time of Disposition: 11:52
[2022-05-07 11:10] LABS: Basophils % (A) 1 %; Eosinophils # (A) 0.1 k/uL (0-0.7); Eosinophils % (A) 2 %; HCT 43.8 % (34.0-46.0); HGB 14.5 gm/dL (11.4-16.0); Lymphocytes # (A) 1.4 k/uL (1.0-4.8); Lymphocytes % (A) 28 %; MCH 30.8 pg (25.0-35.0); MCHC 33.1 g/dL (31.0-37.0); MCV 93.1 fL (80.0-100.0); Mean Platelet Volume 10.9; Monocytes # (A) 0.3 k/uL (0-1.0); Monocytes % (A) 7 %; Neutrophils % (A) 60 %; RDW 13.2 % (11.5-15.5)
[2022-05-07 11:23] LABS: ALT 23 U/L (4-34); AST 33 U/L (14-36); African American GFR (CKD) >90 (>60 ml/min/1.73 sqM); Albumin 4.3 g/dL (3.5-5.0); Alkaline Phosphatase 94 U/L (38-126); Anion Gap 4 mmol/L; Blood Urea Nitrogen 15 mg/dL (7-17); Calcium 8.6 mg/dL (8.4-10.2); Carbon Dioxide 29 mmol/L (22-30); Chloride 107 mmol/L (98-107); Glucose 91 mg/dL (74-99); Magnesium 2.1 mg/dL (1.6-2.3); Non-African American GFR(CKD) >90 (>60 ml/min/1.73 sqM); Potassium 4.7 mmol/L (3.5-5.1); Sodium 140 mmol/L (137-145); Total Bilirubin 0.6 mg/dL (0.2-1.3); Total Protein 6.6 g/dL (6.3-8.2)
--- NOTE | 2022-05-07 11:33 | CT ---
EXAMINATION TYPE: CT brain wo con CT DLP: 1113.8 mGycm, Automated exposure control for dose reduction was used. DATE OF EXAM: 05/07/2022 11:16 AM COMPARISON: 04/10/2019 MRI brain CLINICAL INDICATION:Female, 57 years old with history of Headache new-onset, TECHNIQUE: Brain: Axial CT images of the brain were obtained with coronal and sagittal reformats created and rev iewed. Contrast used: None. Oral contrast used: None. FINDINGS: Brain: Extra-axial spaces: No abnormal extra-axial fluid collections. Ventricular system: Within normal limits Cerebral parenchyma: No acute intraparenchymal hemorrhage or mass effect. The colunga-white junction is well differentiated. Scattered hypoattenuating areas are seen within the white matter. Cerebellum: Unremarkable. Mass effect: No evidence of midline shift. Intracranial vasculature: unremarkable Soft tissues: Normal. Calvarium/osseous structures: No depressed skull fracture. Paranasal sinuses and mastoid air cells: Mild scattered paranasal sinus disease. Visualized orbits: Orbital contents are intact. IMPRESSION: 1. No acute intracranial process. 2. Nonspecific white matter changes, likely secondary to chronic small vessel ischemic disease.
[2022-05-07 12:01] VITALS: BP 140/85; PULSE 67; RESP 18
[2022-05-07 12:52] LABS: Platelet Count 96 k/uL (150-450); RBC Morphology Normal
== END 2022-05-07 12:15 | disposition home or self-care (01) ==
LOC: EC 09:59
DX: R51.9 Headache, unspecified (principal); K21.9 Gastro-esophageal reflux disease without esophagitis; M19.90 Unspecified osteoarthritis, unspecified site; F17.200 Nicotine dependence, unspecified, uncomplicated; Z79.899 Other long term (current) drug therapy; Z79.1 Long term (current) use of non-steroidal anti-inflammatories (NSAID); Z90.49 Acquired absence of other specified parts of digestive tract
CPT/HCPCS: 36415; 70450; 80053; 83735; 85025; 99283

== ENCOUNTER → 2022-12-14 | Outpatient (CLI) | payer BC ==
[2022-12-14 15:27] LABS: Basophils # (A) 0.04 X 10*3/uL (0.00-0.10); Basophils % (A) 0.6 %; Eosinophils # (A) 0.06 X 10*3/uL (0.04-0.35); Eosinophils % (A) 0.9 %; HCT 45.7 % (37.2-46.3); HGB 15.2 d/dL (12.0-15.0); Lymphocytes # (A) 1.17 X 10*3/uL (0.90-5.00); Lymphocytes % (A) 16.8 %; MCH 30.5 pg (27.0-32.0); MCHC 33.3 d/dL (32.0-37.0); MCV 91.6 FL (80.0-97.0); Mean Platelet Volume 12.5 FL (9.5-12.2); Monocytes # (A) 0.48 X 10*3/uL (0.20-1.00); Monocytes % (A) 6.9 %; NRBC Per 100 WBC 0 X 10*3/uL (0.00-0.01); Neutrophils % (A) 74.4 %; Platelet Count 162 X 10*3/uL (140-440); RBC 4.99 X 10*6/uL (4.10-5.20); RDW 13.3 % (11.5-14.5); WBC 6.98 X 10*3/uL (4.50-10.00)
[2022-12-14 16:52] LABS: ALT 19 U/L (8-44); AST 20 U/L (13-35); Albumin 4.7 d/dL (3.8-4.9); Albumin/Globulin Ratio 1.88 Ratio (1.60-3.17); Alkaline Phosphatase 129 U/L (41-126); BUN/Creat Ratio 16.75 Ratio (12.00-20.00); Blood Urea Nitrogen 13.4 mg/dL (9.0-27.0); Calcium 10.2 mg/dL (8.7-10.3); Carbon Dioxide 26.8 mmol/L (21.6-31.8); Chloride 106 mmol/L (96-109); Globulin 2.5 d/dL (1.6-3.3); Glucose 95 mg/dL (70-110); Potassium 5.2 mmol/L (3.5-5.5); Sodium 145 mmol/L (135-145); Total Bilirubin 0.8 mg/dL (0.3-1.2); Total Protein 7.2 d/dL (6.2-8.2)
== END | disposition home or self-care (01) ==
LOC: LABWHC1 10:10
PROVIDERS: ATTEND Psychiatry & Neurology Neurology
DX: G35 Multiple sclerosis (principal); Z79.899 Other long term (current) drug therapy
CPT/HCPCS: 36415; 80053; 82306; 85025

== ENCOUNTER → 2022-12-21 | Outpatient (CLI) | payer BC ==
--- NOTE | 2022-12-21 11:30 | CT ---
EXAMINATION TYPE: CT brain mitchine wo con DATE OF EXAM: 12/21/2022 COMPARISON: Brain 05/07/2022 HISTORY: 57-year-old female dizziness, neck pain, no injury CT DLP: 1345 mGycm Automated exposure control for dose reduction was used. Technique: Examination of the head was done in axial plane without intravenous contrast. Coronal and sagittal reconstructions performed. CT of the cervical spine was obtained in axial plane without intravenous injection of contrast mater ial. Coronal and sagittal reformatted images were obtained from the axial views for evaluation of f ractures, spinal alignment and canal. FINDINGS: Head: There is no evidence of acute intracranial hemorrhage, acute ischemic changes, mass, mass-effect, or extra-axial fluid collection. There is no effacement of cerebral sulci or basal subarachnoid cister ns. There is no hydrocephalus. There is no midline shift. Bartholomew-white matter distinction is preserv ed. Scattered mild mucosal thickening right maxillary sinus, ethmoid air cells, and mucosal retention cys t left sphenoid sinus measuring 1.2 cm. Air fluid level right sphenoid sinus. Mastoid air cells well pneumatized. Orbits and globes are intact. Cervical spine: No craniocervical junction abnormality, predental space widening, or prevertebral soft tissue swellin g. Preserved alignment of the cervical spine with post surgical change of C4-C7 ACDF. Degenerative disc disease with posterior disc bulging above the fusion at C3-C4 causing mild to moder ate narrowing of the spinal canal. Assessment of the spinal canal below the fusion is limited due to artifact from the patient's shoulde rs. No acute fracture seen of the cervical spine. At the fused C4-C5 level, there is moderate bilateral neural foraminal stenosis. Mild to moderate on both sides at C5-C6 and moderate to severe on the left at C6-C7. There is no evidence of focal disk herniation. There is no central spinal canal stenosis. Sagittal and coronal reformatted images confirm above findings. COMBINED IMPRESSION: 1. No acute intracranial abnormality seen. 2. No acute fracture or malalignment of the cervical spine. Previous C4-C7 ACDF. Degenerative disc di sease above the fusion at C3-C4 may contribute to a mild to moderate spinal canal stenosis. 3. Variable moderate neural foraminal stenoses as outlined above. Moderate to severe on the left at C 6-C7. 5. Mild chronic pansinus disease. Small air-fluid level in the right sphenoid sinus may be seen with acute sinusitis. Clinically correlate.
== END | disposition home or self-care (01) ==
LOC: RADCTMAIN 10:23
PROVIDERS: ATTEND Family Medicine
DX: M50.31 Other cervical disc degeneration, high cervical region (principal); M48.02 Spinal stenosis, cervical region; J32.4 Chronic pansinusitis; R51.9 Headache, unspecified
CPT/HCPCS: 70450; 72125

== ENCOUNTER → 2023-02-08 | Outpatient (CLI) | payer BC ==
--- NOTE | 2023-02-08 08:06 | MM ---
Reason for Exam: Clinical finding. Last mammogram was performed 5 year(s) and 4 month(s) ago. Indicated Problems: Large axillary lymph nodes of the left side (size 17) for 1 Month(s). Patient History: Menarche at age 15. First Full-Term at age 28. Postmenopausal. Hormonal Contraceptives for 3 months. Maternal cousin (tom) had breast cancer. Paternal cousin (elton) had breast cancer. Risk Values: Charisse 5 year model risk: 1.3%. NCI Lifetime model risk: 9.1%. Prior Study Comparison: 03/22/2010 Bilateral Screening Mammogram, [facility]. 10/17/2017 Bilateral Screening Mammogram, [facility]. Tissue Density: The breast tissue is heterogeneously dense. This may lower the sensitivity of mammography. Findings: Analyzed By CAD. Pattern appears symmetrical and stable. No significant interval change is evident. No suspicious groups of microcalcifications, spiculated or lobular masses, architectural distortion or other secondary signs of malignancy are mammographically apparent. The area in question within the left axilla appears to be out of the [id number] cannot be imaged mammography. Ultrasound left axilla is recommended for additional evaluation. Overall Assessment: Incomplete: need additional imaging evaluation, BI-RAD 0 Management: Diagnostic Breast Ultrasound of the left breast. A negative mammogram report should not preclude additional follow up of suspicious palpable abnormalities. Patient should continue monthly self breast exam. A clinical breast exam by your physician is recommended on an annual basis and results should be correlated with mammographic findings. Electronically signed and approved by: Arnel Sotelo D.O. Radiologis
--- NOTE | 2023-02-08 08:58 | USB ---
Reason for Exam: Clinical finding. Patient History: Menarche at age 15. First Full-Term at age 28. Postmenopausal. Hormonal Contraceptives for 3 months. Maternal cousin (tom) had breast cancer. Paternal cousin (elton) had breast cancer. Risk Values: Charisse 5 year model risk: 1.3%. NCI Lifetime model risk: 9.1%. Technique: Method: Targeted. Prior Study Comparison: 03/22/2010 Bilateral Screening Mammogram, [facility]. 10/17/2017 Bilateral Screening Mammogram, [facility]. Findings: The axilla of the left breast was scanned. No suspicious solid or cystic masses are identified. There are couple of benign-appearing lymph nodes present. These measure 1.1 x 0.8 x 0.4 cm and 1.7 x 0.8 x 0.6 cm. This second lymph node has a cortex measuring 0.3 cm which is at the upper limits of normal for size. Follow-up left axillary ultrasound in 3 months is recommended. Earlier additional workup can be performed for change and clinical findings.. Overall Assessment: Probably benign, BI-RAD 3 Management: Diagnostic Breast Ultrasound of the left breast in 3 months. A clinical breast exam by your physician is recommended on an annual basis and results should be correlated with mammographic findings. This exam should not preclude additional follow-up of suspicious palpable abnormalities. Results were given to the patient verbally at the time of exam. Electronically signed and approved by: Arnel Sotelo D.O. Radiologis
== END | disposition home or self-care (01) ==
LOC: RADMAMWWP 07:29
PROVIDERS: ATTEND Family Medicine
DX: R22.32 Localized swelling, mass and lump, left upper limb (principal); Z78.0 Asymptomatic menopausal state; Z80.3 Family history of malignant neoplasm of breast
CPT/HCPCS: 77062; 77066

== ENCOUNTER → 2023-07-20 | Outpatient (CLI) | payer BC ==
--- NOTE | 2023-07-20 14:21 | USB ---
Reason for Exam: Follow-up at short interval from prior study. Indicated Problems: Pain of the left side (Focal) for 5 Month(s) : axilla . Patient History: Menarche at age 15. First Full-Term at age 28. Postmenopausal. Hormonal Contraceptives for 3 months. Maternal cousin (tom) had breast cancer. Paternal cousin (elton) had breast cancer. Risk Values: Charisse 5 year model risk: 1.4%. NCI Lifetime model risk: 8.9%. Technique: Method: Whole Breast Handheld. Doppler: Color. Patient Position: Supine. Prior Study Comparison: 03/22/2010 Bilateral Screening Mammogram, [facility]. 10/17/2017 Bilateral Screening Mammogram, [facility]. 02/08/2023 Left US breast axilla LT, [facility]. 02/08/2023 Bilateral MG 3D diag mammo w/cad ISAAC, [facility]. Findings: The whole breast of the left breast, the axilla of the left breast and the retroareolar of the left breast were scanned. A complete US of all four quadrants of the breast, axilla, and retro-areolar region were reviewed. A couple benign small cysts are present measuring up to 4 mm at 4:00 and 3:00. Dense tissues present throughout. No other solid or cystic lesion. Multiple nonenlarged benign lymph nodes are noted in the axilla. The previous borderline thickening has resolved. Overall Assessment: Benign, BI-RAD 2 Management: Screening Mammogram of both breasts in 7 months. In time for the patient's annual exam. A clinical breast exam by your physician is recommended on an annual basis and results should be correlated with mammographic findings. This exam should not preclude additional follow-up of suspicious palpable abnormalities. Results were given to the patient verbally at the time of exam. Electronically signed and approved by: Jose Nice M.D. Radiologist
== END | disposition home or self-care (01) ==
LOC: RADUSWWP 13:42
PROVIDERS: ATTEND Family Medicine
DX: N60.12 Diffuse cystic mastopathy of left breast (principal); R92.8 Other abnormal and inconclusive findings on diagnostic imaging of breast; Z78.0 Asymptomatic menopausal state; Z80.3 Family history of malignant neoplasm of breast

== ENCOUNTER → 2023-12-04 | Outpatient (CLI) | payer MEDICARE, BC ==
[2023-12-04 10:25] VITALS: BP 144/84; PULSE 64; RESP 16; TEMP 97.1
--- NOTE | 2023-12-04 13:15 | P.PAINPG ---
PQRS Measure Charge Sheet Comment: HISTORY OF PRESENT ILLNESS: A 58 yr old female as a referral from Dr Diallo presents today w severe and chronic head and neck pain secondary to occipital neuralgia, cervicogenic RANGEL for evaluation. Pt states pain level is provoked at 8 /10 in intensity, constant, localized in the upper neck, predominantly axial, achy in character w occasional shooting pain towards the top of the head and face. Pain is provoked by flexion. Pain is alleviated by physician guided home exercises daily since mid October 2023 (cervical), heat, medications (Ibu), topical Aspercreme, repositioning and rest . PMH: OA, GERD, MS PSH: C5-C6 ACDF, EGD/ Colonoscopy (2019), BL RFA L2-L5 (Nov 2018), Section, Cholecystectomy, Uterine Ablation SH: Daily tobacco use, Rare ETOH use, No illicit drug use FH: Fa- CA. Sis- Blood Clot All: See list Meds: See list REVIEW OF ORGAN SYSTEMS: CONSTITUTIONAL: No fevers or chills. No recent weight loss. NEUROLOGICAL: + numbness and tingling along the distal extremities. No seizure disorders or headaches. MUSCULOSKELETAL: + pain PSYCHIATRIC: Denies current depression or suicidal thoughts. Physical Examinations : Constitutional : Cooperative , not in acute distress . Neurologic : Cranial nerve II to XII intact. No focal neurological deficits. Psychiatric : alert & oriented x 3. Matching mood & appropriate affect. Judgment & insight intact. Musculoskeletal : Cervical Spine BL LIOR TTP Motor strength in the deltoid and biceps: Normal right side. Normal Left side Motor strength biceps and the wrist extensors: Normal right side . Normal left side Motor strength in the triceps muscle: Normal right side. Normal left side Deep tendon reflexes: Normal at the biceps. Normal at Brachioradialis. Normal at triceps Vertebral body tenderness to deep palpation over Cervical facet loading test: positive bilaterally Spurling test: positive bilaterally Neck distraction test: positive bilaterally Ata sign: positive bilaterally Lumbar spine Motor strength lower extremities ,thigh and legs 5/5 Right side , 5/5 Left side Deep tendon reflexes : Normal Knee Jerk. Normal Ankle Jerk Vertebral body tenderness over Lawrence Test positive Lumbar facet Loading Test: positive Right / positive Left Range of motion of the lumbar spine Flexion 30 degrees, extension 10 degrees Straight Leg Raise test: Left/ Right positive at degrees Ángel test: positive right / positive left. Severe tenderness over the Sacroiliac joint on the Right / Left sides Gaenslen test: positive bilaterally Seated flexion test: positive bilaterally. Sacral spine : Severe tenderness over the Sacroiliac joint: right side / left side Range of motion: Flexion of the lumbar spine <60 degrees Range of motion: Extension of the lumbar spine <20 degrees Gaenslen's Test positive Ángel test: positive right side / l eft side Thigh Thrust Test Sacral Thrust Test Imaging: MRI with/ without contrast of the cervical spine from 03/05/21 reviewed MRI with/ without contrast of the brain from 07/31/20 reviewed Assessment/ Plan : Occipital Neuralgia, Cervicogenic RANGEL Recommendation of BL LIOR injection #1. May need a series of injections for optimal pain relief. Risks, benefits of procedure discussed and patient verbalized understanding. Admits to anti- coagulant use or medical history of diabetes. Protocol for discontinuation/ continuation of medications margarito procedure discussed. All questions answered. I have spent greater than 30 minutes on patient care today. Dr Patel was available by phone for the evaluation of this patient. The time was used to review the medical records including relevant urine studies and Prescription history (MAPs), review of the available imaging, evaluation and examination of the patient, coordination of care with the medical staff and if applicable referring physicians, as well as creation of the medical record PQRS Narrative: Smoking Status Current every day smoker Hx Alcohol Use (MH) Yes: social Home Medications: Ambulatory Orders Cholecalciferol [Vitamin D3] 5,000 unit PO DAILY 07/09/16 Propranolol [Inderal] 20 mg PO QAM 08/01/16 Ibuprofen 400 mg PO Q6H PRN 07/25/18 Pantoprazole Sodium 40 mg PO BID 07/25/18 Controlled Substance Measures - Controlled Substance Measures Is patient prescribed a controlled substance at discharge?: No
== END ==
LOC: PNWHC3 08:45
PROVIDERS: ATTEND Specialist
DX: M54.81 Occipital neuralgia (principal); G44.86 Cervicogenic headache; F17.200 Nicotine dependence, unspecified, uncomplicated
CPT/HCPCS: 99211

== ENCOUNTER 2023-12-26 08:22 | Day surgery (SDC) | payer MEDICARE, BC ==
[2023-12-26 09:41] VITALS: TEMP 98
[2023-12-26] MEDS ORDERED: methylPREDNISolone ACETATE 40 MG/ML 1 ML VIAL ONE (10:03)
[2023-12-26] MEDS ORDERED: ROPIVACAINE 5MG/ML 20ML VIAL ONE (10:03)
--- NOTE | 2023-12-26 10:08 | P.PCN ---
Date of Procedure: 12/26/23 Description of Procedure: Pre-operative diagnosis: occipital neuralgia Post Operative Diagnosis: occipital neuralgia Procedure: bilateral greater occipital nerve block under ultrasound - Ultrasound used to place needle and avoid vascular structures. Anesthesia: local with 1% lidocaine and IV sedation per nurse anesthesia Sedation administered by: local only PROCEDURE INDICATION: The patient with neck pain and headache secondary to occipital neuralgia unresponsive to conservative treatments. PROCEDURE DESCRIPTION / TECHNIQUE: The patient was seen and identified in the preoperative area. Risks, benefits, complications, and alternatives were discussed with the patient, the patient agreed to proceed with the procedure and signed the consent. Vital signs remained stable throughout the procedure. Patient was taken to the OR and time out was completed. The patient was placed in the sitting position on the procedure table. The cervical area and occiptial area were prepped with alcohol swab. Critical pause was taken. Vital signs were closely monitored during the procedure. Conscious sedation was used during the procedure to decrease patients anxiety. Right side: Ultrasound was used and the occipital artery was visualized exiting the skull about 2-3 cm lateral and 2cm inferior to the occipital protuberance On the right side. Then after negative aspiration, a 25g needed was introduced under ultrasound, negative aspiration confirmed and then 3 ml of the block solution containing 2.5 ml of PF Ropivaciane 0.5% and depomedrol (total of 20mg) was injected after negative aspiration. Needle was withdrawn intact. Left side: Ultrasound was used and the occipital artery was visualized exiting the skull about 2-3 cm lateral and 2cm inferior to the occipital protuberance On the left side. Then after negative aspiration, a 25g needed was introduced under ultrasound, negative aspiration confirmed and then 3 ml of the block solution containing 2.5 ml of PF Ropivaciane 0.5% and depomedrol (total of 20mg) was injected after negative aspiration. Needle was withdrawn intact. Patient tolerated procedure well. No acute complications.
[2023-12-26 10:33] VITALS: BP 126/56; PULSE 56; RESP 18
== END 2023-12-26 10:45 | disposition home or self-care (01) ==
LOC: ORPAIN 08:22
PROVIDERS: ATTEND Hospitalist
DX: M54.81 Occipital neuralgia (principal); Z79.1 Long term (current) use of non-steroidal anti-inflammatories (NSAID)
CPT/HCPCS: 64405; J2795; J1010

== ENCOUNTER → 2024-03-04 | Outpatient (CLI) | payer MEDICARE, BC ==
[2024-03-04 07:57] VITALS: BP 147/77; PULSE 57; RESP 16; TEMP 97.8
--- NOTE | 2024-03-04 12:35 | P.PAINPG ---
Objective - Vital Signs Vital signs: Intake & Output 03/03/24 03/04/24 03/04/24 18:59 06:59 18:59 Weight 48.081 kg PQRS Measure Charge Sheet Comment: HISTORY OF PRESENT ILLNESS: A 58 yr old female presents today w severe and chronic head and neck pain secondary to occipital neuralgia, cervicogenic RANGEL for evaluation s/p BL LIOR injection #1. Pt states she experienced 95 % pain relief x 5 wks s/p procedure. Pt states pain level is provoked at 6 /10 in intensity, constant, localized in the upper neck, predominantly axial, achy in character w occasional shooting pain towards the top of the head and face. Pain is provoked by flexion. Pain is alleviated by physician guided home exercises daily since mid October 2023 (cervical), heat, medications, topical, repositioning and rest . Interventional procedures include BL LIOR injection x1 Medications include Ibu, Aspercreme REVIEW OF ORGAN SYSTEMS: CONSTITUTIONAL: No fevers or chills. No recent weight loss. NEUROLOGICAL: + numbness and tingling along the distal extremities. No seizure disorders or headaches. MUSCULOSKELETAL: + pain PSYCHIATRIC: Denies current depression or suicidal thoughts. Physical Examinations : Constitutional : Cooperative , not in acute distress . Neurologic : Cranial nerve II to XII intact. No focal neurological deficits. Psychiatric : alert & oriented x 3. Matching mood & appropriate affect. Judgment & insight intact. Musculoskeletal : Cervical Spine BL LIOR TTP Motor strength in the deltoid and biceps: Normal right side. Normal Left side Motor strength biceps and the wrist extensors: Normal right side . Normal left side Motor strength in the triceps muscle: Normal right side. Normal left side Deep tendon reflexes: Normal at the biceps. Normal at Brachioradialis. Normal at triceps Vertebral body tenderness to deep palpation over Cervical facet loading test: positive bilaterally Spurling test: positive bilaterally Neck distraction test: positive bilaterally Ata sign: positive bilaterally Lumbar spine Motor strength lower extremities ,thigh and legs 5/5 Right side , 5/5 Left side Deep tendon reflexes : Normal Knee Jerk. Normal Ankle Jerk Vertebral body tenderness over Lawrence Test positive Lumbar facet Loading Test: positive Right / positive Left Range of motion of the lumbar spine Flexion 30 degrees, extension 10 degrees Straight Leg Raise test: Left/ Right positive at degrees Ángel test: positive right / positive left. Severe tenderness over the Sacroiliac joint on the Right / Left sides Gaenslen test: positive bilaterally Seated flexion test: positive bilaterally. Sacral spine : Severe tenderness over the Sacroiliac joint: right side / left side Range of motion: Flexion of the lumbar spine <60 degrees Range of motion: Extension of the lumbar spine <20 degrees Gaenslen's Test positive Ángel test: positive right side / left side Thigh Thrust Test Sacral Thrust Test Imaging: MRI with/ without contrast of the cervical spine from 03/05/21 reviewed MRI with/ without contrast of the brain from 07/31/20 reviewed Assessment/ Plan : Occipital Neuralgia, Cervicogenic RANGEL Recommendation of BL LIOR injection #2. May need a series of injections for optimal pain relief. Risks, benefits of procedure discussed and patient verbalized understanding. Admits to anti- coagulant use or medical history of diabetes. Protocol for discontinuation/ continuation of medications margarito procedure discussed. All questions answered. I have spent greater than 30 minutes on patient care today. Dr Patel was available by phone for the evaluation of this patient. The time was used to review the medical records including relevant urine studies and Prescription history (MAPs), review of the available imaging, evaluation and examination of the patient, coordination of care with the medical staff and if applicable referring physicians, as well as creation of the medical record PQRS Narrative: Smoking Status Current every day smoker Hx Alcohol Use (MH) Yes: social Home Medications: Ambulatory Orders Cholecalciferol [Vitamin D3] 2,000 unit PO DAILY 07/09/16 Ibuprofen 400 mg PO Q6H PRN 07/25/18 Pantoprazole Sodium 40 mg PO BID 07/25/18 Diroximel Fumarate [Vumerity] 231 mg PO BID 12/22/23 Topiramate 25 mg PO DAILY 12/22/23 Controlled Substance Measures - Controlled Substance Measures Is patient prescribed a controlled substance at discharge?: No
== END | disposition home or self-care (01) ==
LOC: PNWHC3 07:37
PROVIDERS: ATTEND Specialist
DX: M54.81 Occipital neuralgia
CPT/HCPCS: 99211

== ENCOUNTER → 2024-03-18 | Outpatient (CLI) | payer MEDICARE, BC ==
[2024-03-18 15:03] LABS: Basophils # (A) 0.07 X 10*3/uL (0.00-0.10); Basophils % (A) 0.7 %; Eosinophils # (A) 0.07 X 10*3/uL (0.04-0.35); Eosinophils % (A) 0.7 %; HCT 45.3 % (37.2-46.3); HGB 14.5 g/dL (12.0-15.0); Lymphocytes # (A) 1.58 X 10*3/uL (0.90-5.00); Lymphocytes % (A) 16.5 %; MCH 30.2 pg (27.0-32.0); MCV 94.4 FL (80.0-97.0); Mean Platelet Volume 11.8 FL (9.5-12.2); Monocytes # (A) 0.63 X 10*3/uL (0.20-1.00); Monocytes % (A) 6.6 %; NRBC Per 100 WBC 0 X 10*3/uL (0.00-0.01); Neutrophils # (A) 7.17 X 10*3/uL (1.80-7.70); Neutrophils % (A) 75.2 %; Platelet Count 138 X 10*3/uL (140-440); RDW 14.6 % (11.5-14.5); WBC 9.55 X 10*3/uL (4.50-10.00)
[2024-03-18 15:58] LABS: ALT 22 U/L (8-44); AST 17 U/L (13-35); Albumin 4.4 g/dL (3.8-4.9); Albumin/Globulin Ratio 1.91 Ratio (1.60-3.17); Alkaline Phosphatase 98 U/L (41-126); BUN/Creat Ratio 23.71 Ratio (12.00-20.00); Blood Urea Nitrogen 16.6 mg/dL (9.0-27.0); Calcium 9.5 mg/dL (8.7-10.3); Carbon Dioxide 23.2 mmol/L (21.6-31.8); Chloride 110 mmol/L (96-109); Globulin 2.3 g/dL (1.6-3.3); Glucose 94 mg/dL (70-110); Potassium 4.2 mmol/L (3.5-5.5); Sodium 143 mmol/L (135-145); Total Bilirubin 0.6 mg/dL (0.3-1.2); Total Protein 6.7 g/dL (6.2-8.2)
== END | disposition home or self-care (01) ==
LOC: LABWHC1 09:01
PROVIDERS: ATTEND Psychiatry & Neurology Neurology
CPT/HCPCS: 36415; 80053; 82306; 85025

== ENCOUNTER 2024-03-22 11:40 | Day surgery (SDC) | payer MEDICARE, BC ==
[2024-03-19 13:04] VITALS: BMI 20.1
[2024-03-22 12:20] VITALS: TEMP 97.5
[2024-03-22] MEDS ORDERED: ROPIVACAINE 5MG/ML 20ML VIAL ONE (12:48)
[2024-03-22] MEDS ORDERED: methylPREDNISolone ACETATE 80 MG/ML 1 ML VIAL ONE (12:48)
[2024-03-22 13:01] VITALS: RESP 20
--- NOTE | 2024-03-22 13:08 | P.PCN ---
Description of Procedure: Preoperative diagnoses. Greater occipital neuralgia Postoperative diagnoses. Greater occipital neuralgia Procedure. Bilateral/Right/Left Greater occipital nerve block with local anesthetics and steroid. Anesthesia. Local infiltration of 1% lidocaine. Continuous pulse ox, EKG, blood pressure and verbal communication was maintained with the patient in the OR. . Estimated blood loss. Minimal. Procedure indication. The patient had a history of severe chronic neck pain ,and headache, diagnosed with occipital neuralgia.Exam was positive for severe tenderness over the occipital nerve, she will be a good candidate occipital nerve block, patient failed conservative management. Discussed with the patient the procedure, alternative, complications including infection, bleeding, nerve damage, aggravation of pain all of which could be permanent. Patient understands and QUESTIONS were answered. Procedure description. Patient was placed in the sitting position or table and the neck area was prepped and draped with a sterile fashion. At the junction of right sternocleidomastoid muscle with trapezius muscle close to right superior nucheal line was identified, occipital artery was palpated. Just medial to the occipital artery 25-gauge needle attached to a syringe was introduced. Then after negative aspiration for heme and CSF and there was no paresthesia during the injection, 1.5 ml of Robivacaine 0.5% and 1ml of 40 mg of Depo-Medrol injected total volume 2.5 mL after negative aspiration, the needle removed. Entire same procedure was repeated for the left Greater occipital nerve. The patient returned to supine position after the back was cleaned and a Band- Aid applied. Disposition. Patient tolerated the procedure well. No complication. Discharged home in stable condition.
[2024-03-22 13:18] VITALS: BP 132/76; PULSE 58
== END 2024-03-22 13:39 | disposition home or self-care (01) ==
LOC: ORPAIN 11:40
PROVIDERS: ATTEND Pain Medicine Interventional Pain Medicine
DX: M54.81 Occipital neuralgia (principal)
CPT/HCPCS: 64405